=== PATIENT | male | born 1980 | race African-American/Black ===

== ENCOUNTER 2020-07-05 02:20 | Emergency (ER) | payer OTHER, SELFPAY ==
[2020-07-05 02:36] VITALS: BP 131/88; PULSE 86; RESP 18; TEMP 36.6; O2SAT 97; BMI 68.1
--- NOTE | 2020-07-05 02:55 | ED.GENADULT ---
HPI - General Adult General Chief complaint: Altered Mental Status Stated complaint: AMS Time Seen by Provider: 07/05/20 02:50 Source: patient Mode of arrival: EMS Limitations: no limitations History of Present Illness HPI narrative: patient is brought to the emergency room via EMS. Patient was found sleeping in his car, no Narcan given, patient was asked by PD to come to the emergency room. Patient agreed. Patient is here somnolent, states he takes Seroquel at bedtime, patient sleeps in his car because he is homeless. Patient denies using drugs. patient denies any recent illnesses. complaint: Somnolence Onset (ago): hour(s) Severity: moderate Related Data Allergies Allergy/AdvReac Type Severity Reaction Status Date / Time No Known Allergies Allergy Unverified 06/07/20 19:34 [No Known Allergies*] Review of Systems Review of Systems: Constitutional : No Weight loss, No Fever, No Chills, No Night Sweats, No Fatigue, No Malaise ENT/Mouth : No Hearing loss, No Ear Pain, No Nasal Congestion, No Sinus Pain, No Hoarseness, No sore throat, No Rhinorrhea, No Swallowing Difficulty Eyes: No Eye Pain, No Swelling, No Redness, No Foreign Body, No Discharge, No Vision Changes Cardiovascular : No Chest Pain, No SOB, No Dyspnea on Exertion, No Orthopnea, No Edema, No Palpitations Respiratory : No Cough, No Sputum, No Wheezing, No Smoke Exposure, No Dyspnea Gastrointestinal : No Nausea, No Vomiting, No Diarrhea, No Constipation, No abdominal Pain, No Hematochezia, No Melena Genitourinary : no irregular bleeding, No Dysuria, No Urinary Frequency, No Hematuria, No Urinary Incontinence, No Urgency, No Flank Pain, No Urinary Flow Changes, No Hesitancy Musculoskeletal : No joint pain, No Myalgias, No Joint Swelling Skin : No Skin Lesions, No rash Neuro : No Weakness, No Numbness, No Paresthesias, No Loss of Consciousness, No Dizziness, No Headache Psych : No Anxiety/Panic, No Depression, No SI/HI/AH/VH, No Social Issues, Heme/Lymph: No Bruising, No Bleeding,No Lymphadenopathy Endocrine : No Polyuria, No Polydipsia, No Temperature Intolerance PMFSH Past Medical History Medical History Anxiety Depression Schizophrenia Social History Social History Alcohol intake: unknown Smoking Status: Current every day smoker Use of substances other than those prescribed or required for medical reasons: Unknown Advance Directives: No Advance Directives Information Provided: No Physical Exam Vital Signs: Vital Signs: Vital Signs Temp Pulse Resp BP Pulse Ox 07/05/20 04:30 18 L 80 H 130/86 98 07/05/20 02:36 97.9 F 86 18 131/88 97 Body Mass Index 68.1 Appearance: Alert. Oriented X3. No acute distress. Eyes: Pupils equal, round and reactive to light. ENT: Pharynx normal. Neck: Normal inspection. Neck supple. No lymph nodes noted. No crepitus CVS: Normal heart rate and rhythm. Pulses normal. Normal S1 and S2 Respiratory: No respiratory distress. Breath sounds normal. No Wheezing. No rales Abdomen: Soft and nontender. No rigidity. No distention. good BS x4 Skin: Skin warm and dry. Normal skin color. Normal skin turgor. Extremities: No lower extremity edema. No lower extremity edema. No Lacerations. No Rash Neuro: Oriented X 3, somnolent, easily arousable No motor deficit. No sensory deficit. Moving all extermities. No slurred speech. Course Course Course Narrative: patient is awake, steady gait, ready for discharge Medical Decision Making MDM Narrative Medical decision making narrative: patient did not need Narcan, patient states he only used Seroquel. Patient is now awake, alert, steady gait, patient being discharged. Discharge Plan Discharge Clinical Impression: Somnolence Patient Disposition: Home, Self-Care Additional Instructions: Please follow-up with your primary care physician tomorrow. If you have any worsening or new symptoms, please return to the emergency room or call 911 Interventions: ED Discharge Assessment Last Done: 07/05/20 05:39 Discharge Date/Time: 07/05/20 05:39
[2020-07-05 04:30] VITALS: BP 130/86; PULSE 18; RESP 80; O2SAT 98
== END 2020-07-05 05:39 | disposition home or self-care (01) ==
PROVIDERS: Emergency Provider Emergency Medicine
DX: R40.0 Somnolence (principal); F17.200 Nicotine dependence, unspecified, uncomplicated; F20.9 Schizophrenia, unspecified
CPT/HCPCS: 99283; 99284

== ENCOUNTER 2023-10-05 16:47 | Emergency (ER) | payer OTHER, SELFPAY ==
--- NOTE | ~2023-10-05 | CT_ITS ---
EXAMINATION: CT ABDOMEN AND PELVIS WITH CONTRAST CLINICAL INFORMATION: Pain. COMPARISON: None available. TECHNIQUE: Multidetector volumetric images were obtained from the superior aspect of the liver through the pubic symphysis following administration 85 mL of Omnipaque 350 intravenous contrast. Sagittal and coronal reformatted images were obtained on the technologist's workstation. Oral contrast: No This CT examination was performed using dose optimization techniques as appropriate, variously including the following: *Automated exposure control *Adjustment of mA and/or kV according to patient size (this includes techniques or standardized protocols for targeted exams where dose is matched to indication/reason for exam; i.e. extremities or head) *Use of iterative reconstruction technique DLP: 615 mGy-cm FINDINGS: LUNG BASES: The visualized lung bases are unremarkable. LIVER, GALLBLADDER, AND BILIARY TREE: The liver is normal in size, shape, and attenuation. No focal hepatic lesion or biliary ductal dilatation is present. The gallbladder is unremarkable with no evidence of radiopaque gallstones, gallbladder wall thickening, or obvious pericholecystic inflammatory changes. PANCREAS: Unremarkable. SPLEEN: Unremarkable. ADRENAL GLANDS: Unremarkable. KIDNEYS AND URETERS: The kidneys are normal in size, shape, and attenuation. No hydronephrosis, hydroureter, or calculi seen. No perinephric stranding. BLADDER: Unremarkable. GASTROINTESTINAL TRACT: The small and large bowel are unremarkable. The appendix is prominent in size measuring up to 7 to 8 mm. There is no periappendiceal infiltration. ABDOMINAL WALL: No significant hernia is appreciated. LYMPH NODES: Normal. VASCULAR: Unremarkable. PELVIC VISCERA: Unremarkable. OSSEOUS STRUCTURES: Unremarkable. CT/CT abdomen pelvis w IV con IMPRESSION: Prominent appendix measuring 7 to 8 mm. There is no periappendiceal infiltration or fluid. Overall low suspicion for acute appendicitis. Correlation and follow-up is needed. No other significant abnormality identified. Fleischner guidelines were followed.
--- NOTE | 2023-10-05 17:46 | ED.GENADULT ---
HPI - General Adult General Chief complaint: Abdominal Pain Stated complaint: diarrhea,abd and back pain Time Seen by Provider: 10/05/23 23:19 Source: patient, RN notes reviewed and old records reviewed Mode of arrival: ambulatory Limitations: no limitations History of Present Illness HPI narrative: 42-year-old male past medical history significant for alcohol abuse presents for evaluation of abdominal pain, diarrhea. 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 Since then he has had abdominal pain, vomiting and diarrhea He denies any history abdominal surgeries He denies any history of pancreatitis He reports that he has not had a drink in the last 2 weeks but continues to have pain, nausea and diarrhea Related Data Previous Rx's Medication Instructions Recorded ondansetron 4 mg disintegrating 4 mg PO Q8H PRN nausea and 10/06/23 tablet vomiting #20 tabs Allergies Allergy/AdvReac Type Severity Reaction Status Date / Time No Known Allergies Allergy Verified 10/05/23 17:47 [No Known Allergies*] Review of Systems Constitutional: Constitutional: Denies chills and Denies fever(s) Eyes: Eyes: Denies blurry vision Cardiovascular: Cardiovascular: Denies chest pain and Denies dyspnea Respiratory: Respiratory: Denies cough and Denies dyspnea Gastrointestinal: Gastrointestinal: Reports abdominal pain, Reports nausea and Reports vomiting Musculoskeletal: Musculoskeletal: Reports back pain Integumentary/Breasts: Skin/Breast: Denies rash Psychiatric: Psychiatric: Denies depression PMFSH Past Medical History Onset Date is defined in the Problem List Problems that require an onset date and time if occurred within 24 hrs of arrival to the ED Aortic Dissection and Rupture; Neurologic impairment; Cardiopulmonary Arrest; Endotracheal Intubation; Insertion or Replacement of Mechanical Circulatory Assist Device Medical History Anxiety Depression Schizophrenia Social History Social History Alcohol intake: unknown Advance Directives: No Advance Directives Information Provided: Yes Physical Exam ED Vital Signs: Vital Signs - 24 hr 10/05/23 17:47 10/05/23 23:13 10/06/23 02:27 Temperature 97.2 F 98.3 F 98.3 F Pulse Rate 104 H 93 78 Respiratory Rate 18 17 18 Blood Pressure 139/88 140/85 H 131/85 Pulse Oximetry 99 96 97 Oxygen Delivery Method Room Air Room Air Room Air BMI result Body Mass Index 29.8 Const General: healthy appearing, comfortable, no acute distress, alert and awake Nutritional Appearance: well nourished Orientation/consciousness: patient oriented x3 HENMT Head: Yes normocephalic and Yes atraumatic Eyes Eyelids: Yes eyelids normal Conjunctivae: conjunctivae normal Sclerae: sclerae normal Corneas: corneas normal Pupils: Equal, round and reactive pupils present EOM: EOMs intact bilaterally Neck Neck: Yes full ROM Resp Effort & Inspection: normal respiratory effort, able to speak in complete sentences and not labored GI Inspection: No distended Palpation (GI): Soft to palpation, not firm, Tenderness to palpation present (GI) in the epigastrum, in the LUQ and in the RUQ, no guarding and not rigid Skin General skin exam: elasticity normal Neuro General: patient oriented x3 Cranial nerves: Yes Equal, round and reactive pupils present and Yes Bilaterally intact EOM present Cognition (Neuro): normal cognition Extrem Other: Moving all extremities well without any obvious deformities Course Course Course Narrative: RME:?42 yo male hx schizophrenia, depression, anxiety, here w/ n/v/d, bilateral flank pain, and burning sensation to epigastric region x2 weeks. He is hesitant to eat anything. reports swollen LN to groin and b/l axilla. denies melana, hematochezia. no sick contacts. no hx of STD, syphilis. plan for labs, ua, serology Full HPI, ROS and PE to be performed by the primary ED provider. Reevaluation(s) Reevaluation #1: Patient's CT scan resulted showing no evidence of acute pancreatitis. He does have a borderline thickened appendix. The CT imaging shows low suspicion for acute appendicitis. The patient has no right lower quadrant tenderness on exam. Clinically there was a low suspicion for acute appendicitis. I discussed return precautions with the patient including right lower quadrant abdominal pain. Inability to tolerate p.o.. He is stable for discharge. He did bring up a concern for STIs. He would like to be tested but will not be empirically treated at this time. Time: 02:41 Medications Administered Discontinued Medications Generic Name Dose Route Start Last Admin Trade Name Krystle PRN Reason Stop Dose Admin Sodium Chloride 1,000 mls @ 999 mls/hr 10/05/23 23:45 10/06/23 00:48 Ns IV 10/06/23 00:45 999 mls/hr .Q1H1M JACY Administration Iohexol 85 ml 10/06/23 01:27 10/06/23 01:27 Iohexol 350 Mg/Ml 100 Ml Infus..Btl IV 10/06/23 01:28 85 ml ONCE ONE Administration Ondansetron HCl 4 mg 10/05/23 23:47 10/06/23 00:48 Ondansetron Hcl 4 Mg/2 Ml Vial IVPUSH 10/05/23 23:48 4 mg ONCE ONE Administration Medical Decision Making Medical Decision Making [facility] Narrative: 42-year-old male presents for evaluation abdominal pain, diarrhea. He reports he has an extensive history of alcohol abuse but has not had a drink in 2 weeks. 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 Will add on a all tells panel and ethanol level. Patient has a mild transaminitis with a lipase approximately twice upper normal. Will need a CT scan of the abdomen pelvis as he has no history of pancreatitis. Given the reported alcohol abuse I have a lower suspicion for gallbladder disease. The patient's total bilirubin was also 0.3 which is less likely be related to biliary obstruction. Patient medicated with fluids, Zofran, he declines analgesia at this time Differential Diagnosis Differential Diagnoses: The differential diagnosis associated with the presentation includes Acute pancreatitis Elevated lipase Transaminitis Alcoholic cirrhosis Biliary disease Viral syndrome Alcohol abuse Lab Data [facility] Lab Attestation statement: I reviewed the patient's lab results. No leukocytosis or anemia. Patient's platelet count is 111 just below normal. No significant electrolyte abnormalities. He has a very mild transaminitis, a normal total bilirubin of 0.3 and a lipase elevated to 157 10/05/23 19:53 10/05/23 19:53 Labs: Lab Results 10/05/23 10/06/23 10/06/23 Range/Units 19:53 00:47 01:40 WBC 5.3 (4.8-10.8) X10*3/uL RBC 5.42 (4.60-5.80) X10*6/uL Hgb 15.7 (14.0-18.0) g/dl Hct 46.9 (42.0-52.0) % MCV 86.5 (80.0-98.0) fL MCH 29.0 (27.0-33.0) pg MCHC 33.5 (31.0-36.0) g/dl RDW 14.6 (11.0-16.0) % Plt Count 111 L (160-400) X10*3/uL MPV 12.5 H (9.4-12.4) fL Immature Gran % (Auto) 0.2 (0.0-0.4) % Neut % (Auto) 41.0 L (45-73) % Lymph % (Auto) 45.5 H (20-40) % [place] % (Auto) 9.8 (2-11) % Eos % (Auto) 2.7 (0-4) % Baso % (Auto) 0.8 (0-2) % Lymph # (Auto) 2.4 (1.2-4.9) X10*3/uL [place] # (Auto) 0.5 (0.1-1.2) X10*3/uL Eos # (Auto) 0.1 (0.0-0.4) X10*3/uL Baso # (Auto) 0.0 (0.0-0.2) X10*3/uL Abs Immat Gran (auto) 0.01 (0.00-0.03) X10*3/uL Absolute Neuts (auto) 2.2 (2.0-8.3) x10*3/uL Absolute Nucleated RBC 0.000 (0.0-0.012) X10*3/uL Nucleated RBC % (auto) 0.0 (0.0-0.2) /100WBC Sodium 140 (135-145) mmol/L Potassium 4.7 (3.3-5.1) mmol/L Chloride 102 (96-108) mmol/L Carbon Dioxide 29 (22-29) mmol/L Anion Gap 14 (12-20) BUN 12 (9-16) mg/dL Creatinine 1.25 (0.5-1.4) mg/dL Estim Creat Clear Calc 94.1 Estimated GFR > 60 Random Glucose 97 (60-115) mg/dL Calcium 11.2 H (8.4-10.2) mg/dL Magnesium 1.8 (1.6-2.6) mg/dL Total Bilirubin 0.3 (0.0-1.0) mg/dL AST 44 H (5-37) U/L ALT 94 H (0-40) U/L Alkaline Phosphatase 54 (39-117) U/L Total Protein 8.7 H (6.5-8.0) g/dL Albumin 5.1 H (3.5-5.0) g/dL Lipase 159 H (8-78) U/L Urine Color Yellow Urine Appearance Clear Urine pH 5.5 (5.0-9.0) Ur Specific [place] >= 1.030 H (1.005-1.025) Urine Protein Negative (Neg-Trace) mg/dL Urine Glucose (UA) Negative (Negative) mg/dL Urine Ketones Negative (Negative) mg/dL Urine Blood Negative (Negative) Urine Nitrite Negative (Negative) Ur Leukocyte Esterase Negative (Negative) Ethyl Alcohol < 10 mg/dL COVID-19 (ZAHIRA) Negative (Negative) COVID-19 Clin Com See Note Influenza Type A (ASTER) Negative (Negative) Influenza Type B (ASTER) Negative (Negative) Influenza A & B Note See Note Discharge Plan Discharge Clinical Impression: Pancreatitis Patient Disposition: Home, Self-Care Instructions: Pancreatitis (ED) Additional Instructions: Your workup in the emergency department today was significant for mild elevation of your liver enzymes and lipase that was approximately double normal. This is suggestive of mild pancreatitis likely related to alcohol abuse. You should drink a liquid diet for the next few days until your pain and vomiting resolved A diet of bananas, rice, applesauce, toast will help slow down diarrhea there is a good place to start after 2-3 days of liquid diet You may use Zofran as needed for nausea or vomiting Follow-up with your primary doctor Return for new or worsening symptoms especially if you develop severe right lower quadrant abdominal pain or unable to tolerate any liquids or food without vomiting. Prescriptions: New ondansetron 4 mg tablet,disintegrating 4 mg PO Q8H PRN (Reason: nausea and vomiting) Qty: 20 0RF
[2023-10-05 17:47] VITALS: BP 139/88; PULSE 104; RESP 18; TEMP 36.2; O2SAT 99; BMI 29.8
[2023-10-05 19:59] LABS: MANUAL DIFF FLAG NO
[2023-10-05 20:04] LABS: Basophils Percent Auto 0.8 % (0-2); Eosinophils Absolute Auto 0.1 X10*3/uL (0.0-0.4); Eosinophils Percent Auto 2.7 % (0-4); Hematocrit 46.9 % (42.0-52.0); Hemoglobin 15.7 g/dl (14.0-18.0); Imm Gran Abs Auto 0.01 X10*3/uL (0.00-0.03); Imm Gran Pct Auto 0.2 % (0.0-0.4); Lymphocytes Absolute Auto 2.4 X10*3/uL (1.2-4.9); Lymphocytes Percent Auto 45.5 % (20-40); Mean Corpuscular HGB Conc 33.5 g/dl (31.0-36.0); Mean Corpuscular Volume 86.5 fL (80.0-98.0); Mean Platelet Volume 12.5 fL (9.4-12.4); Monocytes Absolute Auto 0.5 X10*3/uL (0.1-1.2); Monocytes Percent Auto 9.8 % (2-11); Neutrophils Absolute Auto 2.2 x10*3/uL (2.0-8.3); Platelet Count 111 X10*3/uL (160-400); Red Blood Count 5.42 X10*6/uL (4.60-5.80); Red Cell Distribution Width 14.6 % (11.0-16.0); White Blood Count 5.3 X10*3/uL (4.8-10.8)
[2023-10-05 20:19] LABS: Alanine Aminotransferase 94 U/L (0-40); Albumin Level 5.1 g/dL (3.5-5.0); Alkaline Phosphatase 54 U/L (39-117); Anion Gap 14 (12-20); Aspartate Amino Transferase 44 U/L (5-37); Bilirubin Total 0.3 mg/dL (0.0-1.0); Blood Urea Nitrogen 12 mg/dL (9-16); Calcium 11.2 mg/dL (8.4-10.2); Carbon Dioxide 29 mmol/L (22-29); Chloride 102 mmol/L (96-108); Creatinine Clr Calc Pharmacy 94.1; Estimated Glomerular Filt Rate > 60; Glucose Random 97 mg/dL (60-115); Lipase 159 U/L (8-78); Magnesium 1.8 mg/dL (1.6-2.6); Potassium 4.7 mmol/L (3.3-5.1); Sodium 140 mmol/L (135-145); Total Protein 8.7 g/dL (6.5-8.0)
[2023-10-05 20:20] LABS: COVID-19 Test Negative (Negative); IDNOW Serial# 08D9AD1C; IDNOW Serial# 152EDE1D; Influenza A Negative (Negative); Influenza B2 Negative (Negative)
[2023-10-05 23:13] VITALS: BP 140/85; PULSE 93; RESP 17; TEMP 36.8; O2SAT 96
[2023-10-06] MEDS: ondansetron HCL 4 MG/2 ML VIAL IVPUSH (00:48)
[2023-10-06] MEDS: 0.9 % Sodium Chloride 1,000 ML 999 ML IV (00:48)
[2023-10-06 01:13] LABS: Ethanol < 10 mg/dL
[2023-10-06] MEDS: iohexoL 350 MG/ML 100 ML INFUS..BTL 85 ML IV (01:27)
[2023-10-06 01:46] LABS: Appearance Urine Clear; Color Urine Yellow; Glucose Urine UA Negative (Negative); Leukocyte Esterase Urine Negative (Negative); Nitrite Urine Negative (Negative); PH 5.5 (5.0-9.0); Specific Gravity - Urine >= 1.030 (1.005-1.025); Urine Blood Negative (Negative); Urine Ketones Negative (Negative); Urine Protein Negative (Neg-Trace)
[2023-10-06 02:27] VITALS: BP 131/85; PULSE 78; RESP 18; TEMP 36.8; O2SAT 97
[2023-10-06 04:59] LABS: Ethylene Glycol NONE DETECTED (NONE DETECTED)
[2023-10-06 04:59] LABS: Acetone NONE DETECTED (NONE DETECTED); Analysis performed on: WHOLE BLOOD; Ethyl Alcohol g/dL (%) NONE DETECTED g/dL(%) (NONE DETECTED); Ethyl Alcohol mg/dL NONE DETECTED (NONE DETECTED); Isopropanol NONE DETECTED (NONE DETECTED)
[2023-10-06 07:23] LABS: Methyl Alcohol NONE DETECTED
[2023-10-06 11:23] LABS: CT PCR NOT DETECTED (Not Detect.); NG PCR NOT DETECTED (Not Detect.)
== END 2023-10-06 03:05 | disposition home or self-care (01) ==
PROVIDERS: Physician Assistant; Physician Assistant Medical; Emergency Provider Emergency Medicine
DX: K85.90 Acute pancreatitis without necrosis or infection, unspecified (principal); R10.9 Unspecified abdominal pain; M54.50 Low back pain, unspecified; R11.2 Nausea with vomiting, unspecified; Z11.52 Encounter for screening for COVID-19; Z20.828 Contact with and (suspected) exposure to other viral communicable diseases; Z79.899 Other long term (current) drug therapy
CPT/HCPCS: 0353U; 36415; 74177; 80053; 80307; 80320; 81003; 82693; 83690; 83735; 85025; 87502; 87635; 96374; 99284; J2405; Q9967

== ENCOUNTER 2024-04-04 12:09 | Emergency (ER) | payer OTHER, SELFPAY ==
--- NOTE | ~2024-04-04 | XR_ITS ---
EXAMINATION: XR ANKLE, LEFT XR FOOT, LEFT CLINICAL INFORMATION: Pain following injury. COMPARISON: None. TECHNIQUE: AP, lateral, and oblique views of the left ankle and foot were obtained. FINDINGS: At the distal aspect the medial malleolus, there is a minimally displaced cortical fracture fragment measuring up to 0.6 cm in ML dimension and seen on the lateral oblique radiographs, consistent with an avulsion fracture. No additional fracture. No dislocation. The ankle mortise is maintained. No joint space narrowing or marginal osteophytes. No osseous erosion. Tiny dorsal calcaneal enthesophyte. XR/XR foot LT min 3V IMPRESSION: 1. Minimally displaced avulsion fracture at the distal aspect of the medial malleolus. 2. Tiny dorsal calcaneal spur.
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
--- NOTE | ~2024-04-04 | XR_ITS ---
EXAMINATION: XR ANKLE, LEFT XR FOOT, LEFT CLINICAL INFORMATION: Pain following injury. COMPARISON: None. TECHNIQUE: AP, lateral, and oblique views of the left ankle and foot were obtained. FINDINGS: At the distal aspect the medial malleolus, there is a minimally displaced cortical fracture fragment measuring up to 0.6 cm in ML dimension and seen on the lateral oblique radiographs, consistent with an avulsion fracture. No additional fracture. No dislocation. The ankle mortise is maintained. No joint space narrowing or marginal osteophytes. No osseous erosion. Tiny dorsal calcaneal enthesophyte. XR/XR ankle LT min 3V IMPRESSION: 1. Minimally displaced avulsion fracture at the distal aspect of the medial malleolus. 2. Tiny dorsal calcaneal spur.
[2024-04-04 12:22] VITALS: BP 158/109; PULSE 110; RESP 18; TEMP 36.6; O2SAT 100; BMI 30.5
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
[2024-04-04 16:28] VITALS: BP 147/101; PULSE 103; RESP 16; TEMP 37; O2SAT 98
[2024-04-04 16:58] VITALS: BP 147/101; PULSE 103; RESP 16; TEMP 37; O2SAT 98
== END 2024-04-04 17:31 | disposition home or self-care (01) ==
PROVIDERS: Emergency Provider Student in an Organized Health Care Education/Training Program; PCP Internal Medicine
DX: S82.52XA Displaced fracture of medial malleolus of left tibia, initial encounter for closed fracture (principal); R51.9 Headache, unspecified; M54.2 Cervicalgia; H93.13 Tinnitus, bilateral; M25.572 Pain in left ankle and joints of left foot; X58.XXXA Exposure to other specified factors, initial encounter; V43.12XA Car passenger injured in collision with other type car in nontraffic accident, initial encounter; Y93.89 Activity, other specified; Y92.481 Parking lot as the place of occurrence of the external cause; Y99.8 Other external cause status
CPT/HCPCS: 70450; 72125; 73610; 73630; 99284

== ENCOUNTER 2024-04-22 11:27 | Outpatient (AMB) | payer OTHER, SELFPAY ==
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
== END 2024-04-22 12:00 | disposition home or self-care (01) ==
PROVIDERS: PCP Internal Medicine; Visit Provider Physician Assistant
DX: S82.892A Other fracture of left lower leg, initial encounter for closed fracture (principal); Z04.3 Encounter for examination and observation following other accident
CPT/HCPCS: 99203

== ENCOUNTER → 2024-04-22 11:27 | Outpatient (BNVA) | payer OTHER, SELFPAY | PROVIDERS: PCP Internal Medicine; Visit Provider Physician Assistant ==

== ENCOUNTER 2024-06-15 11:00 | Outpatient (RCR) | payer OTHER, SELFPAY ==
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
== END 2024-06-22 16:31 | disposition home or self-care (01) ==
LOC: HO.PTCHIC 11:00
PROVIDERS: PCP Internal Medicine; Visit Provider Physician Assistant
DX: S82.892D Other fracture of left lower leg, subsequent encounter for closed fracture with routine healing (principal)
CPT/HCPCS: 97110; 97112; 97161

== ENCOUNTER 2024-07-21 15:23 | Outpatient (AMB) | payer OTHER, SELFPAY ==
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
== END 2024-07-21 16:00 | disposition home or self-care (01) ==
LOC: HO.HOS 15:24
PROVIDERS: PCP Internal Medicine; Visit Provider Physician Assistant
DX: S82.892A Other fracture of left lower leg, initial encounter for closed fracture (principal)
CPT/HCPCS: 99213; G2211

== ENCOUNTER → 2024-07-21 15:23 | Outpatient (BNVA) | payer OTHER, SELFPAY | PROVIDERS: PCP Internal Medicine; Visit Provider Physician Assistant ==

== ENCOUNTER 2025-03-04 19:46 | Inpatient (IN) | payer OTHER, SELFPAY ==
--- NOTE | ~2025-03-04 | CT_ITS ---
CLINICAL HISTORY: finger swollen, cat bite CT Left Hand W Contrast COMPARISON: None FINDINGS: Subcutaneous fat stranding most pronounced in the dorsolateral hand and 2nd digit subcutaneous fat. Small soft tissue emphysema dorsal to the distal 2nd metacarpal (series 3, image 218 and series 7, image 70). No visible foreign body. No soft tissue abscess. No acute fracture or dislocation. No cortical disruption or periosteal reaction. IMPRESSION: Findings consistent with cellulitis in the dorsolateral hand and 2nd digit. Soft tissue emphysema in this area could be due to penetrating trauma or gas-forming infection/necrotizing fasciitis, which is a clinical diagnosis. This document has been electronically signed by: Rakan Stafford MD on 03/05/2025 01:32:33
[2025-03-04 20:01] VITALS: BP 131/77; PULSE 87; RESP 16; TEMP 36.6; O2SAT 99; BMI 30.5
--- NOTE | 2025-03-04 20:01 | ED.GENADULT ---
HPI - General Adult General Chief complaint: Animal Bite Stated complaint: cat scratched 2 days ago hand is swollen Time Seen by Provider: 03/04/25 21:39 Source: patient Mode of arrival: ambulatory Limitations: no limitations History of Present Illness ED Provider: HPI narrative: Patient was healthy was throwing the trash in the trash bin and found the stray cat in the trash bin tried to take her out with bare hand and Cat bit him on his left hand and right hand. Patient comes here with multiple bite hilliard on the left index finger wrist of the left hand in the right forearm patient noticed increased swelling of the left index finger painful to dorsiflex because of pain swelling spreading to the dorsum of the hand Related Data Home Medications ?Medication ?Instructions ?Recorded ?Confirmed bupropion HCl 150 mg 24 hr tablet, 150 mg PO DAILY 04/22/24 extended release dextroamphetamine-amphetamine 30 1 tab PO DAILY 04/22/24 mg tablet propranolol 20 mg tablet 20 mg PO BID 04/22/24 sertraline 100 mg tablet 100 mg PO DAILY 04/22/24 tadalafil 10 mg tablet 10 mg PO 04/22/24 Previous Rx's ?Medication ?Instructions ?Recorded ondansetron 4 mg disintegrating 4 mg PO Q8H PRN nausea and 10/06/23 tablet vomiting #20 tabs amoxicillin 875 mg-potassium 1 tab PO BID #20 tabs 03/04/25 clavulanate 125 mg tablet ibuprofen 600 mg tablet 600 mg PO Q6H PRN fever or pain 03/04/25 #30 tabs Allergies Allergy/AdvReac Type Severity Reaction Status Date / Time No Known Allergies Allergy Verified 03/04/25 20:06 [No Known Allergies*] Review of Systems Review of Systems: Yes all other systems are reviewed and are negative [facility] Past Medical History Medical History Schizophrenia Depression Anxiety Social History Social History Alcohol intake: current Alcohol intake frequency: a few times a week Patient Tobacco Use Status: Former Tobacco user Smoked in Last 30 Days: No Substance Use Type: Marijuana Advance Directives: No Advance Directives Information Provided: No Current occupational status: unemployed Physical Exam ED Vital Signs: Vital Signs - 24 hr 03/04/25 20:01 03/04/25 22:15 Temperature 97.8 F 97.6 F Pulse Rate 87 83 Respiratory Rate 16 18 Blood Pressure 131/77 144/91 H Pulse Oximetry 99 100 Oxygen Delivery Method Room Air Room Air BMI result Body Mass Index 30.5 Appearance: Alert. Oriented X3. No acute distress. Eyes: no pallor or icterus ENT: Pharynx normal Oral Mucosa moist tympanic membrane intact no erythema, Neck: Normal inspection. Neck supple. CVS: Normal heart rate and rhythm. Pulses normal. Respiratory: No respiratory distress. Equal air entry bilateral, no wheezing/rales/rhonchi Abd: soft, not tender Skin: Skin warm and dry. Normal skin color. Normal skin turgor. Extremities: No lower extremity edema, no calf tenderness swollen left index finger painful dorsiflexion Neuro: Oriented X 3. Course Course Course Narrative: This is a rapid medical exam performed by Mary Cortes [employer] PROFESSOR: Additional HPI, ROS, PE not included below will be deferred to primary provider. Patient is a 44-year-old right hand dominant male presenting with complaint of cat scratches and bite to bilateral hands/arms which occurred 2 days ago. States the cat was in his trash can and he didn't realize it, occurred in [place]. Believes cat is a stray. Unsure last Tdap. Swelling and decreased ROM to left 2nd finger. Plan: labs, Tdap Medications Administered Discontinued Medications Generic Name Dose Route Start Last Admin Trade Name Freq PRN Reason Stop Dose Admin Diphtheria/Tetanus/Acell Pertussis 0.5 ml 03/04/25 21:59 03/04/25 22:15 Diphth,Pertus(Acell),Tet Adult 0.5 Ml Syringe IM 03/04/25 22:00 0.5 ml .ONCE ONE Administration Piperacillin Sod/Tazobactam 50 mls @ 100 mls/hr 03/04/25 21:59 03/04/25 22:36 Sod 3.375 gm/ Sodium Chloride IV 03/04/25 22:28 Infused ONCE ONE Infusion Lidocaine HCl 5 ml 03/04/25 22:50 03/04/25 23:22 Lidocaine Hcl 1 % Mpf 5 Ml Vial INFILTRATI 03/04/25 22:51 5 ml ONCE ONE Administration Rabies Immune Globulin 2,000 unit 03/04/25 22:50 03/04/25 23:19 Rabies Immune Globulin/Pf 900 Unit/3 Ml Vial IM 03/04/25 22:51 2,000 unit ONCE ONE Administration Rabies Vaccine 1 ml 03/04/25 22:50 03/04/25 23:20 Rabies Vaccine (Pcec)/Pf 1 Ml Vial IM 03/04/25 22:51 1 ml .ONCE ONE Administration Procedures Abscess I/D Site: hand (Index finger) Side (if applicable): left Local Anesthetic: lidocaine 1% Amount of anesthesia used (mL): 3 Technique: incised with blade Amount of fluid expressed (mL): 1 Sent for culture/gram staining?: No Irrigation: No Packing used?: none Medical Decision Making Medical Decision Making MDM Narrative: Patient comes here with left hand swelling after streak at bite swelling involving the index finger on the dorsum with painful to extend the finger neurovascular intact no palmar pain no signs of tenosynovitis but swelling is spreading to the dorsum of the hand rabies immunoglobulin was given at the site of the cat bite and rabies vaccine was given will started on Unasyn will admit for ortho consultation Differential Diagnosis Differential Diagnoses: The differential diagnosis associated with the presentation includes Admission/Observation Consideration of admission/observation: Escalation of care including admission/observation considered Consult Healthcare Provider Management of the patient was discussed with: Hospitalist Lab Data [facility] Lab Attestation statement: I reviewed the patient's lab results. 03/04/25 20:21 03/04/25 20:21 Labs: Lab Results 03/04/25 Range/Units 20:21 WBC 6.6 (4.8-10.8) X10*3/uL RBC 4.50 L (4.60-5.80) X10*6/uL Hgb 13.8 L (14.0-18.0) g/dl Hct 39.7 L (42.0-52.0) % MCV 88.2 (80.0-98.0) fL MCH 30.7 (27.0-33.0) pg MCHC 34.8 (31.0-36.0) g/dl RDW 14.2 (11.0-16.0) % Plt Count 147 L D (160-400) X10*3/uL MPV 12.1 (9.4-12.4) fL Immature Gran % (Auto) 0.2 (0.0-0.4) % Neut % (Auto) 44.1 L (45-73) % Lymph % (Auto) 39.1 (20-40) % [place] % (Auto) 10.6 (2-11) % Eos % (Auto) 5.5 H (0-4) % Baso % (Auto) 0.5 (0-2) % Lymph # (Auto) 2.6 (1.2-4.9) X10*3/uL [place] # (Auto) 0.7 (0.1-1.2) X10*3/uL Eos # (Auto) 0.4 (0.0-0.4) X10*3/uL Baso # (Auto) 0.0 (0.0-0.2) X10*3/uL Abs Immat Gran (auto) 0.01 (0.00-0.03) X10*3/uL Absolute Neuts (auto) 2.9 (2.0-8.3) x10*3/uL Absolute Nucleated RBC 0.000 (0.0-0.012) X10*3/uL Nucleated RBC % (auto) 0.0 (0.0-0.2) /100WBC ESR 3 (0-15) MM/HR Sodium 142 (135-145) mmol/L Potassium 4.1 (3.3-5.1) mmol/L Chloride 112 H (96-108) mmol/L Carbon Dioxide 22 (22-29) mmol/L Anion Gap 12 (12-20) BUN 13 (9-16) mg/dL Creatinine 0.85 (0.5-1.4) mg/dL Estim Creat Clear Calc 141.0 Estimated GFR > 60 Random Glucose 105 (60-115) mg/dL Calcium 8.7 D (8.4-10.2) mg/dL Total Bilirubin 0.1 (0.0-1.0) mg/dL AST 23 (5-37) U/L ALT 33 (0-40) U/L Alkaline Phosphatase 57 (39-117) U/L C-Reactive Protein 0.80 H (< or = 0.50) mg/dL Total Protein 7.1 (6.5-8.0) g/dL Albumin 4.3 (3.5-5.0) g/dL Discharge Plan Discharge Clinical Impression: Cat bite Patient Disposition: Admitted As Inpatient Print Language: Danish
[2025-03-04 20:29] LABS: MANUAL DIFF FLAG NO
[2025-03-04 20:31] LABS: Basophils Percent Auto 0.5 % (0-2); Eosinophils Absolute Auto 0.4 X10*3/uL (0.0-0.4); Eosinophils Percent Auto 5.5 % (0-4); Hematocrit 39.7 % (42.0-52.0); Hemoglobin 13.8 g/dl (14.0-18.0); Imm Gran Abs Auto 0.01 X10*3/uL (0.00-0.03); Imm Gran Pct Auto 0.2 % (0.0-0.4); Lymphocytes Absolute Auto 2.6 X10*3/uL (1.2-4.9); Lymphocytes Percent Auto 39.1 % (20-40); Mean Corpuscular HGB Conc 34.8 g/dl (31.0-36.0); Mean Corpuscular Hemoglobin 30.7 pg (27.0-33.0); Mean Corpuscular Volume 88.2 fL (80.0-98.0); Mean Platelet Volume 12.1 fL (9.4-12.4); Monocytes Absolute Auto 0.7 X10*3/uL (0.1-1.2); Monocytes Percent Auto 10.6 % (2-11); Neutrophils Absolute Auto 2.9 x10*3/uL (2.0-8.3); Neutrophils Percent Auto 44.1 % (45-73); Platelet Count 147 X10*3/uL (160-400); Red Cell Distribution Width 14.2 % (11.0-16.0); White Blood Count 6.6 X10*3/uL (4.8-10.8)
[2025-03-04 20:46] LABS: Alanine Aminotransferase 33 U/L (0-40); Albumin Level 4.3 g/dL (3.5-5.0); Alkaline Phosphatase 57 U/L (39-117); Anion Gap 12 (12-20); Aspartate Amino Transferase 23 U/L (5-37); Bilirubin Total 0.1 mg/dL (0.0-1.0); Blood Urea Nitrogen 13 mg/dL (9-16); Calcium 8.7 mg/dL (8.4-10.2); Carbon Dioxide 22 mmol/L (22-29); Chloride 112 mmol/L (96-108); Estimated Glomerular Filt Rate > 60; Glucose Random 105 mg/dL (60-115); Potassium 4.1 mmol/L (3.3-5.1); Sodium 142 mmol/L (135-145); Total Protein 7.1 g/dL (6.5-8.0)
[2025-03-04 21:21] LABS: Erythrocyte Sedimentation Rate 3 MM/HR (0-15)
[2025-03-04 22:15] VITALS: BP 144/91; PULSE 83; RESP 18; TEMP 36.4; O2SAT 100
[2025-03-04] MEDS: Piperacillin Sodium/Tazobactam 3.375 GM in 0.9 % Sodium Chloride 50 ML IV (22:15)
[2025-03-04] MEDS: Diphth,Pertus(ACell),Tet Adult 0.5 ML SYRINGE IM (22:15)
--- NOTE | 2025-03-04 22:50 | ED.ANIMALBIT ---
HPI - Animal Bite General Chief Complaint: Animal Bite Stated Complaint: cat scratched 2 days ago hand is swollen Time Seen by Provider: 03/04/25 21:39 Related Data Home Medications ?Medication ?Instructions ?Recorded ?Confirmed bupropion HCl 150 mg 24 hr tablet, 150 mg PO DAILY 04/22/24 extended release dextroamphetamine-amphetamine 30 1 tab PO DAILY 04/22/24 mg tablet propranolol 20 mg tablet 20 mg PO BID 04/22/24 sertraline 100 mg tablet 100 mg PO DAILY 04/22/24 tadalafil 10 mg tablet 10 mg PO 04/22/24 Previous Rx's ?Medication ?Instructions ?Recorded ondansetron 4 mg disintegrating 4 mg PO Q8H PRN nausea and 10/06/23 tablet vomiting #20 tabs amoxicillin 875 mg-potassium 1 tab PO BID #20 tabs 03/04/25 clavulanate 125 mg tablet ibuprofen 600 mg tablet 600 mg PO Q6H PRN fever or pain 03/04/25 #30 tabs Allergies Allergy/AdvReac Type Severity Reaction Status Date / Time No Known Allergies Allergy Verified 03/04/25 20:06 [No Known Allergies*] [facility] Past Medical History Medical History Anxiety Depression Schizophrenia Social History Social History Alcohol intake: current Alcohol intake frequency: a few times a week Patient Tobacco Use Status: Former Tobacco user Smoked in Last 30 Days: No Substance Use Type: Marijuana Advance Directives: No Advance Directives Information Provided: No Current occupational status: unemployed Physical Exam ED Vital Signs: Vital Signs - 24 hr 03/04/25 20:01 03/04/25 22:15 Temperature 97.8 F 97.6 F Pulse Rate 87 83 Respiratory Rate 16 18 Blood Pressure 131/77 144/91 H Pulse Oximetry 99 100 Oxygen Delivery Method Room Air Room Air BMI result Body Mass Index 30.5 Medications Administered Discontinued Medications Generic Name Dose Route Start Last Admin Trade Name Freq PRN Reason Stop Dose Admin Diphtheria/Tetanus/Acell Pertussis 0.5 ml 03/04/25 21:59 03/04/25 22:15 Diphth,Pertus(Acell),Tet Adult 0.5 Ml Syringe IM 03/04/25 22:00 0.5 ml .ONCE ONE Administration Piperacillin Sod/Tazobactam 50 mls @ 100 mls/hr 03/04/25 21:59 03/04/25 22:36 Sod 3.375 gm/ Sodium Chloride IV 03/04/25 22:28 Infused ONCE ONE Infusion Medical Decision Making Lab Data 03/04/25 20:21 03/04/25 20:21 Labs: Lab Results 03/04/25 Range/Units 20:21 WBC 6.6 (4.8-10.8) X10*3/uL RBC 4.50 L (4.60-5.80) X10*6/uL Hgb 13.8 L (14.0-18.0) g/dl Hct 39.7 L (42.0-52.0) % MCV 88.2 (80.0-98.0) fL MCH 30.7 (27.0-33.0) pg MCHC 34.8 (31.0-36.0) g/dl RDW 14.2 (11.0-16.0) % Plt Count 147 L D (160-400) X10*3/uL MPV 12.1 (9.4-12.4) fL Immature Gran % (Auto) 0.2 (0.0-0.4) % Neut % (Auto) 44.1 L (45-73) % Lymph % (Auto) 39.1 (20-40) % [place] % (Auto) 10.6 (2-11) % Eos % (Auto) 5.5 H (0-4) % Baso % (Auto) 0.5 (0-2) % Lymph # (Auto) 2.6 (1.2-4.9) X10*3/uL [place] # (Auto) 0.7 (0.1-1.2) X10*3/uL Eos # (Auto) 0.4 (0.0-0.4) X10*3/uL Baso # (Auto) 0.0 (0.0-0.2) X10*3/uL Abs Immat Gran (auto) 0.01 (0.00-0.03) X10*3/uL Absolute Neuts (auto) 2.9 (2.0-8.3) x10*3/uL Absolute Nucleated RBC 0.000 (0.0-0.012) X10*3/uL Nucleated RBC % (auto) 0.0 (0.0-0.2) /100WBC ESR 3 (0-15) MM/HR Sodium 142 (135-145) mmol/L Potassium 4.1 (3.3-5.1) mmol/L Chloride 112 H (96-108) mmol/L Carbon Dioxide 22 (22-29) mmol/L Anion Gap 12 (12-20) BUN 13 (9-16) mg/dL Creatinine 0.85 (0.5-1.4) mg/dL Estim Creat Clear Calc 141.0 Estimated GFR > 60 Random Glucose 105 (60-115) mg/dL Calcium 8.7 D (8.4-10.2) mg/dL Total Bilirubin 0.1 (0.0-1.0) mg/dL AST 23 (5-37) U/L ALT 33 (0-40) U/L Alkaline Phosphatase 57 (39-117) U/L C-Reactive Protein 0.80 H (< or = 0.50) mg/dL Total Protein 7.1 (6.5-8.0) g/dL Albumin 4.3 (3.5-5.0) g/dL Discharge Plan Discharge Clinical Impression: Cat bite Patient Disposition: Admitted As Inpatient Print Language: Vincentian
[2025-03-04] MEDS: Rabies Immune Globulin/PF 900 UNIT/3 ML VIAL 2000 UNIT IM (23:19)
[2025-03-04] MEDS: Rabies Vaccine (PCEC)/PF 1 ML VIAL IM (23:20)
[2025-03-04] MEDS: Lidocaine HCl 1 % MPF 5 ML VIAL INFILTRATI (23:22)
--- NOTE | 2025-03-04 23:35 | PC.NURSE ---
pt medicated per NOV- this nurse observed MD Avalos cleansed lower left index finger with iodine, infiltrate left index finger with 5ml of lidocaine 5%, used a #10blade to make .25 in vertical incision. approx 45mls of bloody purulent drainage observed from site. dry clean dressing was placed, bleeding controlled. pt medicated per NOV for rabies prophylaxis. TdaP also updated. Pt awaiting eval by hospitalist team
[2025-03-05 00:34] VITALS: BP 104/80; PULSE 85; RESP 16; O2SAT 100
--- NOTE | 2025-03-05 00:35 | P.HPHOSP_ITS ---
History of Present Illness Date of Service: 03/05/25 Chief Complaint: cat bite This has a 44-year-old male with pertinent history of mood disorder who presents to the emergency department for evaluation of cat bite. Patient states this happened 2 days prior to presentation when he was trying to take a stray cat out of a trash can who bit the patient on his left hand. He has scratch hilliard on left and right upper extremity. Patient has multiple bite hilliard in his left index finger. He did not take any oral antibiotics for the last 2 days. He noticed that has left index finger was with progressive swelling, erythema and pain. Patient with difficulty with flexing the index finger due to pain. No fever, chills, chest pain, palpitations, shortness of breath, abdominal pain, changes in urinary or bowel habits. In the emergency department, I and D done by ER physician. Review of Systems 2 Constitutional: Constitutional: Reports no additional constitutional complaints Cardiovascular: Cardiovascular: Reports no additional cardiovascular complaints Respiratory: Respiratory: Reports no additional respiratory complaints Gastrointestinal: Gastrointestinal: Reports no additional gastrointestinal complaints Genitourinary: Genitourinary: Reports no additional male genitourinary complaints Musculoskeletal: Musculoskeletal: Reports arthralgias, Reports joint swelling and Reports limited range of motion PMFSH Medical History Schizophrenia Depression Anxiety Social History Alcohol intake: current Alcohol intake frequency: a few times a week Patient Tobacco Use Status: Former Tobacco user Smoked in Last 30 Days: No Substance Use Type: Marijuana Advance Directives: No Advance Directives Information Provided: No Current occupational status: unemployed Meds Allergies Allergy/AdvReac Type Severity Reaction Status Date / Time No Known Allergies Allergy Verified 03/04/25 20:06 [No Known Allergies*] Active Medications: Current Medications Lactated Ringer's (Lr) 1,000 mls @ 999 mls/hr IV .Q1H1M JACY Stop: 03/05/25 01:45 Home Medications ?Medication ?Instructions ?Recorded ?Confirmed ?Last Taken ?Type bupropion HCl 300 mg 24 hr tablet, 300 mg PO DAILY 03/05/25 03/05/25 03/05/25 History extended release dextroamphetamine-amphetamine 30 1 tab PO BID 0603/05/25 03/05/25 History mg tablet quetiapine 200 mg tablet 200 mg PO BEDTIME 03/05/25 03/05/25 03/04/25 History sertraline 100 mg tablet 200 mg PO DAILY 03/05/25 03/05/25 03/04/25 History Physical Exam 2 Vital Signs and Narrative: Vital Signs: Last Vital Signs Temp 97.6 F 03/04/25 22:15 Pulse 85 03/05/25 00:34 Resp 16 03/05/25 00:34 BP 104/80 03/05/25 00:34 Pulse Ox 100 03/05/25 00:34 O2 Del Method Room Air 03/05/25 00:34 BMI result Body Mass Index 30.5 Middle-aged male lying in bed in no distress Neck supple, no JVD Regular rate and rhythm, S1-S2 heard Regular breath sounds bilaterally, no wheezing or crackles appreciated Abdomen soft nontender, no guarding, no rigidity Patient is awake, alert and oriented to self, place, time and person ; no focal motor deficit Psych: Normal mood Left index finger wrapped in bandage ; scratch yashira seen on bilateral upper extremity Results Labs 03/04/25 20:21 03/04/25 20:21 Labs: Laboratory Results - last 24 hr 03/04/25 20:21 MCV 88.2 MCH 30.7 MCHC 34.8 RDW 14.2 Plt Count 147 L D MPV 12.1 Immature Gran % (Auto) 0.2 Neut % (Auto) 44.1 L Lymph % (Auto) 39.1 [place] % (Auto) 10.6 Eos % (Auto) 5.5 H Baso % (Auto) 0.5 Lymph # (Auto) 2.6 [place] # (Auto) 0.7 Eos # (Auto) 0.4 Baso # (Auto) 0.0 Abs Immat Gran (auto) 0.01 Absolute Neuts (auto) 2.9 Absolute Nucleated RBC 0.000 Nucleated RBC % (auto) 0.0 ESR 3 Anion Gap 12 Estim Creat Clear Calc 141.0 Estimated GFR > 60 Random Glucose 105 Calcium 8.7 D Total Bilirubin 0.1 AST 23 ALT 33 Alkaline Phosphatase 57 C-Reactive Protein 0.80 H Total Protein 7.1 Albumin 4.3 Assessment and Plan (1) Cat bite: Status: Acute Plan This has a 44-year-old male with pertinent history of mood disorder who presents to the emergency department for evaluation of cat bite. #. Left finger with cat bite associated cellulitis and abscess: I and D done by ER physician. Will admit patient with IV Unasyn. CT pending to delineate underlying anatomy. Consulting orthopedic surgery, appreciate assistance #. Mood disorder: Continue home mood stabilizers DVT prophylaxis: None. Low risk. Patient is ambulatory Full code Admit as inpatient and will require two night minimum hospital stay for IV antibiotics (as above), which is not possible in a lesser acute setting. Quality Stroke Does the patient have a stroke diagnosis?: No VTE Prior VTE?: No VTE Risk Level:: Medical - low VTE Device Contraindication: Treatment Not Indicated VTE Drug Contraindication: Treatment Not Indicated
[2025-03-05] MEDS: Lactated Ringers 1,000 ML 999 ML IV (00:38)
[2025-03-05] MEDS: Ampicillin Sodium/Sulbactam Na 3 GM in 0.9 % Sodium Chloride 100 ML IV ×4 (00:42→18:13)
[2025-03-05] MEDS: QUEtiapine Fumarate 200 MG TABLET PO ×2 (01:00→21:15)
--- NOTE | 2025-03-05 01:02 | PC.NURSE ---
pt medicated per NOV- report given to Tarsha Alexandra RN call martinez within reach
[2025-03-05 02:44] LABS: MANUAL DIFF FLAG NO
[2025-03-05 02:50] LABS: Basophils Percent Auto 0.5 % (0-2); Eosinophils Absolute Auto 0.4 X10*3/uL (0.0-0.4); Eosinophils Percent Auto 5.9 % (0-4); Hematocrit 39.4 % (42.0-52.0); Hemoglobin 13.5 g/dl (14.0-18.0); Imm Gran Abs Auto 0.01 X10*3/uL (0.00-0.03); Imm Gran Pct Auto 0.2 % (0.0-0.4); Lymphocytes Absolute Auto 2.7 X10*3/uL (1.2-4.9); Lymphocytes Percent Auto 44.7 % (20-40); Mean Corpuscular HGB Conc 34.3 g/dl (31.0-36.0); Mean Corpuscular Hemoglobin 29.9 pg (27.0-33.0); Mean Corpuscular Volume 87.4 fL (80.0-98.0); Mean Platelet Volume 12.4 fL (9.4-12.4); Monocytes Absolute Auto 0.6 X10*3/uL (0.1-1.2); Monocytes Percent Auto 9.4 % (2-11); Neutrophils Absolute Auto 2.4 x10*3/uL (2.0-8.3); Neutrophils Percent Auto 39.3 % (45-73); Platelet Count 132 X10*3/uL (160-400); Red Blood Count 4.51 X10*6/uL (4.60-5.80); White Blood Count 6.1 X10*3/uL (4.8-10.8)
[2025-03-05 03:02] LABS: Anion Gap 11 (12-20); Blood Urea Nitrogen 10 mg/dL (9-16); Carbon Dioxide 22 mmol/L (22-29); Chloride 110 mmol/L (96-108); Estimated Glomerular Filt Rate > 60; Glucose Random 104 mg/dL (60-115); Potassium 3.8 mmol/L (3.3-5.1); Sodium 139 mmol/L (135-145)
[2025-03-05] MEDS: traMADoL HCL 50 MG TABLET PO (04:03)
[2025-03-05 04:05] VITALS: BP 119/64; PULSE 93; RESP 20; TEMP 36.9; O2SAT 96
[2025-03-05] MEDS: Clindamycin Phosphate/D5W 900 MG/50 ML PIGGYBACK 50 MG IV ×3 (04:41→21:10)
--- NOTE | 2025-03-05 07:35 | PHA.MEDREC ---
Addendum entered by Blair Ward RPh 03/05/25 09:05: MED REC REVIEWED BY [facility] Original Note: Pharmacy Consult ? Medication Reconciliation Reviewed med rec done by nursing.
[2025-03-05] MEDS: Amphetamine Mixed Salts 10 MG TABLET 30 MG PO (07:53)
[2025-03-05] MEDS: Sertraline HCL 100 MG TABLET 200 MG PO (07:53)
[2025-03-05] MEDS: 0.9 % Sodium Chloride Flush 3 ML SYRINGE IVFLUSH (07:53)
--- NOTE | 2025-03-05 08:13 | PC.NURSE ---
patient a&ox3, vitals previously stable, rr equal/non labored-lungs clear, pt medicated per order, call martinez within reach, plan of care ongoing
--- NOTE | 2025-03-05 10:37 | PM.EVENT ---
Event Note Date of Service: 03/05/25 Event Note: Consult for Cat bite left index finger swollen with puncture wounds on dorsal aspect Patient has not tried any oral abx Presented to the ED yesterday: -No signs of tenosynovitis per ED note -Admitted to medicine for IV abx Recommend continuation of IV abx at this time to see if this resolves before surgical intervention is needed Will place NPO after midnight in the event surgical intervention is needed Discussed the case with Medicine - Julianne Olvera PA-C Time Spent With Patient Time: Total time managing care of this patient today ____ minutes.
[2025-03-05 10:45] VITALS: BP 114/70; PULSE 78; RESP 18; TEMP 36.9; O2SAT 98
--- NOTE | 2025-03-05 10:49 | PC.NURSE ---
patient a&ox3, vss, pt c/o 04/30 hand pain, pt only has tylenol ordered, messaged provider for stronger medication, call martinez within reach, plan of care ongoing
[2025-03-05] MEDS: Morphine Sulfate 2 MG/ML CARTRIDGE IVPUSH (10:59)
--- NOTE | 2025-03-05 11:00 | PC.NURSE ---
pt medicated for 04/30 pain
[2025-03-05] MEDS: oxyCODONE HCl Immed Release 5 MG TABLET PO ×2 (11:42→21:18)
--- NOTE | 2025-03-05 11:43 | PC.NURSE ---
patient medicated for 6/10 hand pain with po med
[2025-03-05 12:24] VITALS: BP 137/73; PULSE 76; RESP 16; TEMP 36.4; O2SAT 100
--- NOTE | 2025-03-05 14:05 | HO.PM.IMPN ---
Subjective Subjective Date of Service: 03/05/25 Interval History: seen and examined this morning follow up for cat bite still with pain and swelling of left index finger; unable to bend finger much no fever Review of Systems Review of Systems: Yes all other systems are reviewed and are negative Constitutional Constitutional: Denies chills and Denies fever(s) Cardiovascular Cardiovascular: Denies chest pain, Denies palpitations and Denies dyspnea Respiratory Respiratory: Denies cough and Denies dyspnea Endocrine Endocrine: Denies palpitations Physical Exam Vital Signs: Vital Signs: Last Vital Signs Temp 97.6 F 03/05/25 12:24 Pulse 76 03/05/25 12:24 Resp 16 03/05/25 12:24 BP 137/73 03/05/25 12:24 Pulse Ox 100 03/05/25 12:24 O2 Del Method Room Air 03/05/25 12:24 BMI result Body Mass Index 30.5 Const: General: cooperative, comfortable, alert and awake Nutritional Appearance: overweight Orientation/consciousness: patient oriented x3 Resp: Effort & Inspection: normal respiratory effort and able to speak in complete sentences Cardio: Rate: regular rate Skin: Other: left index finger with swelling distally, minimal erythema. no subq emphysema. no fluctuance; able to flex finger about 50%; open wound dorsal surface with no purulent drainage Neuro: General: patient oriented x3 and CN's II-XI intact bilaterally Objective Data Active Medications Acetaminophen (Acetaminophen 325 Mg Tablet) 650 mg PO Q6H PRN PRN Reason: Pain, Mild 1-3,fever,headache Amphetamine/Dextroamphetamine (Amphetamine Mixed Salts 10 Mg Tablet) 30 mg PO BID@0800,1400 [facility] Last Admin: 03/05/25 13:10 Dose: Not Given Documented By: SHERIDAN Non-Admin Reason: Patient Refused Calcium Carbonate (Calcium Carbonate 750 Mg Tab.Chew) 750 mg PO Q4H PRN PRN Reason: Heartburn Ampicillin Sodium/Sulbactam (Sodium 3 gm/ Sodium Chloride) 100 mls @ 200 mls/hr IV Q6H [facility] Last Admin: 03/05/25 13:06 Dose: 200 mls/hr Documented By: SHERIDAN Clindamycin Phosphate (Cleocin) 900 mg in 50 mls @ 50 mls/hr IV Q8H [facility] Last Infusion: 03/05/25 12:33 Dose: Infused Documented By: SHERIDAN Magnesium Hydroxide (Milk Of Magnesia 30 Ml Oral.Susp) 30 ml PO DAILY PRN PRN Reason: Constipation Melatonin (Melatonin 3 Mg Tablet) 6 mg PO BEDTIME PRN PRN Reason: Insomnia Morphine Sulfate (Morphine Sulfate 2 Mg/Ml Cartridge) 2 mg IVPUSH Q4H PRN; Protocol PRN Reason: Pain, Severe (Pain Scale 7-10) Last Admin: 03/05/25 10:59 Dose: 2 mg Documented By: MARIEL Ondansetron HCl (Ondansetron Hcl 4 Mg/2 Ml Vial) 4 mg IVPUSH Q8H PRN PRN Reason: Nausea and Vomiting Oxycodone HCl (Oxycodone Hcl Immed Release 5 Mg Tablet) 5 mg PO Q6H PRN PRN Reason: Pain, Moderate(Pain Scale 4-6) Last Admin: 03/05/25 11:42 Dose: 5 mg Documented By: MARIEL Quetiapine Fumarate (Quetiapine Fumarate 200 Mg Tablet) 200 mg PO BEDTIME [facility] Last Admin: 03/05/25 01:00 Dose: 200 mg Documented By: MAXWELL Sertraline HCl (Sertraline Hcl 100 Mg Tablet) 200 mg PO DAILY [facility] Last Admin: 03/05/25 07:53 Dose: 200 mg Documented By: MARIEL Sodium Chloride (0.9 % Sodium Chloride Flush 3 Ml Syringe) [facility] Last Admin: 03/05/25 07:53 Dose: 3 ml Documented By: MARIEL Labs 03/05/25 02:30 03/05/25 02:30 Labs: Laboratory Results - last 24 hr 03/04/25 03/05/25 20:21 02:30 MCV 88.2 87.4 MCH 30.7 29.9 MCHC 34.8 34.3 RDW 14.2 14.0 Plt Count 147 L D 132 L MPV 12.1 12.4 Immature Gran % (Auto) 0.2 0.2 Neut % (Auto) 44.1 L 39.3 L Lymph % (Auto) 39.1 44.7 H Glasscock % (Auto) 10.6 9.4 Eos % (Auto) 5.5 H 5.9 H Baso % (Auto) 0.5 0.5 Lymph # (Auto) 2.6 2.7 Glasscock # (Auto) 0.7 0.6 Eos # (Auto) 0.4 0.4 Baso # (Auto) 0.0 0.0 Abs Immat Gran (auto) 0.01 0.01 Absolute Neuts (auto) 2.9 2.4 Absolute Nucleated RBC 0.000 0.000 Nucleated RBC % (auto) 0.0 0.0 ESR 3 Anion Gap 12 11 L Estim Creat Clear Calc 141.0 162.0 Estimated GFR > 60 > 60 Random Glucose 105 104 Calcium 8.7 D 9.0 Total Bilirubin 0.1 AST 23 ALT 33 Alkaline Phosphatase 57 C-Reactive Protein 0.80 H Total Protein 7.1 Albumin 4.3 Assessment and Plan (1) Cat bite: Status: Acute Plan This is a 44-year-old male with pertinent history of mood disorder who presents to the emergency department for evaluation of cat bite. cellulitis with abscess of feft index finger due to cat bite s/p I&D in ER, with minimal fluid expressed, no wound culture sent continue IV Unasyn, clindamycin CT with cellulitis and soft tissue emphysema due to penetrating trauma or gas forming infection/necrotizing fasciitis - Gas most likely due to I&D as CT was obtained after procedure, no subcutaneous emphysema on exam, overall appears to be improving when compared to pictures from emergency room. Clindamycin has been added. Check lactic acid. No white count or fever. s/p rabies immunoglobumin, rabies vaccine, tdap orthopedic surgery consult, NPO at midnight in case of need for surgical intervention in am Blood cultures pending Mood disorder: Continue home mood stabilizers Thrombocytopenia Appears chronic DVT prophylaxis: None. Low risk. Patient is ambulatory Full code Admit as inpatient and will require two night minimum hospital stay for IV antibiotics (as above), which is not possible in a lesser acute setting. Quality Stroke Does the patient have a stroke diagnosis?: No VTE Prior VTE?: No VTE Risk Level:: Medical - low VTE Device Contraindication: Treatment Not Indicated VTE Drug Contraindication: Treatment Not Indicated
--- NOTE | 2025-03-05 14:19 | PC.NURSE ---
dressing changed, clean non-adherent applied with gauze wrap. wound clean and dry. swelling in hand reduced (as compred with pictures in chart)
[2025-03-05 15:04] LABS: Lactic Acid 1.3 mmol/L (0.5-2.0)
--- NOTE | 2025-03-05 19:24 | PC.NURSE ---
This RN assumed pt care @ 1900. Pt a&ox4, no signs of distress. Plan of care ongoing.
[2025-03-05 19:33] VITALS: BP 124/66; PULSE 83; RESP 18; TEMP 36.6; O2SAT 99
--- NOTE | 2025-03-05 19:34 | PC.NURSE ---
Pts family at bedside Plan of care ongoing.
--- NOTE | 2025-03-05 19:48 | PC.NURSE ---
Pts family requesting and given ice water. Plan of care ongoing.
--- NOTE | 2025-03-05 20:40 | PC.NURSE ---
Meds not in Pyxis, meds requested from pharmacy Plan of care ongoing.
--- NOTE | 2025-03-05 21:06 | PC.NURSE ---
Med just received from pharmacy
--- NOTE | 2025-03-05 21:21 | PC.NURSE ---
Pt reporting 6/10 pain in finger Pt medicated per mar with prn Pt reporting would like to get some sleep, has not slept at all while being here. Pt requested and lights dimmed and door closed Plan of care ongoing.
[2025-03-06] MEDS: 0.9 % Sodium Chloride Flush 3 ML SYRINGE IVFLUSH (01:12)
[2025-03-06] MEDS: Ampicillin Sodium/Sulbactam Na 3 GM in 0.9 % Sodium Chloride 100 ML IV ×2 (01:12→06:10)
--- NOTE | 2025-03-06 01:28 | PC.NURSE ---
Pt pulled out previously placed IV This RN placed new IV Pt medicated per [facility] Plan of care ongoing.
--- NOTE | 2025-03-06 03:57 | PC.NURSE ---
Assumed care of pt at 0320. Pt resting in bed, breathing even and unlabored. Call martinez at bedside, plan of care on going.
[2025-03-06] MEDS: Clindamycin Phosphate/D5W 900 MG/50 ML PIGGYBACK 50 MG IV (04:58)
--- NOTE | 2025-03-06 05:38 | PC.NURSE ---
pt IV to R-upper arm not flushing and tagaderm removed, catheter bent and kinked. IV removed and new #20 IV placed in L-Forearm.Pt tolerated well. IV abx running.
[2025-03-06 06:26] VITALS: BP 123/61; PULSE 69; RESP 16; TEMP 36.4; O2SAT 98
--- NOTE | 2025-03-06 07:27 | PM.CNOR ---
History of Present Illness HPI Consult date: 03/06/25 Chief complaint: cat bite Narrative: Mr. Gerardo is a healthy 44 year old right hand dominant male who reports that while he was bringing his trash out on 03/03/25 he found a stray cat in the bin. He tried to remove the cat resulting in the cat bitting his left hand index finger and sustaining multiple scratches to bilateral hands and forearms. The patient reports that he developed an increase is swelling and difficulty bending the left index finger. He presented to the ED where IV abx were started and the patient was admitted to the medicine service with orthopedic consult. The patient reports that while in the ED they opened the puncture site on the dorsal aspect of the left index finger for drainage. Review of Systems Review of Systems: Yes all other systems are reviewed and are negative [facility] Past Medical History Medical History Schizophrenia Depression Anxiety Social History Social History Alcohol intake: current Alcohol intake frequency: a few times a week Patient Tobacco Use Status: Former Tobacco user Smoked in Last 30 Days: No Substance Use Type: Marijuana Advance Directives: No Advance Directives Information Provided: No Nutrition Risks: No Nutritional Risk Current occupational status: unemployed Meds Allergies Allergy/AdvReac Type Severity Reaction Status Date / Time No Known Allergies Allergy Verified 03/04/25 20:06 [No Known Allergies*] Active Medications: Current Medications Acetaminophen (Acetaminophen 325 Mg Tablet) 650 mg PO Q6H PRN PRN Reason: Pain, Mild 1-3,fever,headache Amphetamine/Dextroamphetamine (Amphetamine Mixed Salts 10 Mg Tablet) 30 mg PO BID@0800,1400 [facility] Last Admin: 03/05/25 13:10 Dose: Not Given Bupropion HCl (Bupropion Hcl Xl 300 Mg Tab.Er.24h) 300 mg PO DAILY JACY Calcium Carbonate (Calcium Carbonate 750 Mg Tab.Chew) 750 mg PO Q4H PRN PRN Reason: Heartburn Ampicillin Sodium/Sulbactam (Sodium 3 gm/ Sodium Chloride) 100 mls @ 200 mls/hr IV Q6H [facility] Last Infusion: 03/06/25 06:42 Dose: Infused Clindamycin Phosphate (Cleocin) 900 mg in 50 mls @ 50 mls/hr IV Q8H [facility] Last Infusion: 03/06/25 06:38 Dose: Infused Magnesium Hydroxide (Milk Of Magnesia 30 Ml Oral.Susp) 30 ml PO DAILY PRN PRN Reason: Constipation Melatonin (Melatonin 3 Mg Tablet) 6 mg PO BEDTIME PRN PRN Reason: Insomnia Morphine Sulfate (Morphine Sulfate 2 Mg/Ml Cartridge) 2 mg IVPUSH Q4H PRN; Protocol PRN Reason: Pain, Severe (Pain Scale 7-10) Last Admin: 03/05/25 10:59 Dose: 2 mg Ondansetron HCl (Ondansetron Hcl 4 Mg/2 Ml Vial) 4 mg IVPUSH Q8H PRN PRN Reason: Nausea and Vomiting Oxycodone HCl (Oxycodone Hcl Immed Release 5 Mg Tablet) 5 mg PO Q6H PRN PRN Reason: Pain, Moderate(Pain Scale 4-6) Last Admin: 03/05/25 21:18 Dose: 5 mg Quetiapine Fumarate (Quetiapine Fumarate 200 Mg Tablet) 200 mg PO BEDTIME [facility] Last Admin: 03/05/25 21:15 Dose: 200 mg Sertraline HCl (Sertraline Hcl 100 Mg Tablet) 200 mg PO DAILY [facility] Last Admin: 03/05/25 07:53 Dose: 200 mg Sodium Chloride (0.9 % Sodium Chloride Flush 3 Ml Syringe) 3 ml IVFLUSH [facility] Last Admin: 03/06/25 01:12 Dose: 3 ml Home Medications ?Medication ?Instructions ?Recorded ?Confirmed ?Last Taken ?Type bupropion HCl 300 mg 24 hr tablet, 300 mg PO DAILY 03/05/25 03/05/25 03/05/25 History extended release dextroamphetamine-amphetamine 30 1 tab PO BID 03/05/25 03/05/25 03/05/25 History mg tablet quetiapine 200 mg tablet 200 mg PO BEDTIME 03/05/25 03/05/25 03/04/25 History sertraline 100 mg tablet 200 mg PO DAILY 03/05/25 03/05/25 03/04/25 History Physical Exam Vital Signs: Vital Signs: Last Vital Signs Temp 97.6 F 03/06/25 06:26 Pulse 69 03/06/25 06:26 Resp 16 03/06/25 06:26 BP 123/61 03/06/25 06:26 Pulse Ox 98 03/06/25 06:26 O2 Del Method Room Air 03/06/25 06:26 BMI result Body Mass Index 30.5 Const: General: cooperative, healthy appearing and no acute distress Resp: Effort & Inspection: normal respiratory effort and able to speak in complete sentences Extrem: Other: Left hand index finger: Puncture wound that was opened on the dorsal aspect of the hand is not draining. Edema is improving. No tenderness to palpation of the flexor tendons. Able to flex and extend all digits. Lacking about 3cm from making a closed fist. Denies numbness and tingling. Capillary refill is brisk. Results Labs 03/05/25 02:30 03/05/25 02:30 Labs: H & H 03/04/25 03/05/25 Range/Units 20:21 02:30 Hgb 13.8 L 13.5 L (14.0-18.0) g/dl Hct 39.7 L 39.4 L (42.0-52.0) % All other labs normal. Assessment and Plan (1) Cat bite: Status: Acute Plan Continue IV Abx Continue to monitor for signs of improvement Instructed patient to work on gentle ROM with instruction/demonstration provided at bed side No Surgical intervention needed at this time If worsening symptoms of abscess development occurs may consider OR Procedures Date of Service Date of Service: 03/06/25
--- NOTE | 2025-03-06 09:09 | PM.DS ---
DS: Providers Provider Date of Service: 03/06/25 Date of admission: 03/04/25 23:32 Date of discharge: 03/06/25 Primary care physician: Hunter Angela MD Consults: 03/05/25 00:33 Consult to Orthopedics Routine Consulting Provider: [facility] Orthopedic Surgeons Reason for consultation: finger infection DS: Diagnosis Discharge Diagnosis (1) Cat bite: Status: Acute DS: Summary Hospital Course Hospital Course: History and physical as per admitting provider This has a 44-year-old male with pertinent history of mood disorder who presents to the emergency department for evaluation of cat bite. Patient states this happened 2 days prior to presentation when he was trying to take a stray cat out of a trash can who bit the patient on his left hand. He has scratch hilliard on left and right upper extremity. Patient has multiple bite hilliard in his left index finger. He did not take any oral antibiotics for the last 2 days. He noticed that has left index finger was with progressive swelling, erythema and pain. Patient with difficulty with flexing the index finger due to pain. No fever, chills, chest pain, palpitations, shortness of breath, abdominal pain, changes in urinary or bowel habits. In the emergency department, I and D done by ER physician. 44-year-old man treated for cellulitis with abscess to left index finger secondary to a cat bite status post I&D in the ER, treated with IV Unasyn and clindamycin. Status post rabies vaccine, Tdap. Blood cultures negative. Seen evaluated by Orthopedic surgery, instructed patient on gentle range of motion, no surgical intervention required at this time. Plan will be to send home with Augmentin for 10 days. Patient is to keep wound clean and dry. Return to the ER if symptoms worsened. Mental health. Continue home medications Thrombocytopenia. Chronic Time Attestation Discharge Coordination Time (in mins): 40 Quality: Safe Use of Opioids Does Pt have an Active Cancer Diagnosis on the Problem List?: No Quality: Stroke Does the patient have a stroke diagnosis?: No Physical Exam Vital Signs: Vital Signs: Last Vital Signs Temp 97.6 F 03/06/25 06:26 Pulse 69 03/06/25 06:26 Resp 16 03/06/25 06:26 BP 123/61 03/06/25 06:26 Pulse Ox 98 03/06/25 06:26 O2 Del Method Room Air 03/06/25 06:26 BMI result Body Mass Index 30.5 Appearing in no acute distress head is normocephalic atraumatic eyes pupils are PERRLA sclera is anicteric mouth throat mucous membranes are intact and moist neck is supple no lymphadenopathy, no JVD noted lung sounds are clear to auscultation heart regular rate rhythm, clear S1, S2 positive bowel sounds, abdomen is soft, nontender neuro patient is alert x3, no focal deficits DS: Data Data Completed and Pending Labs on day of discharge: Laboratory Results - last 24 hr 03/05/25 14:42 Lactic Acid 1.3 Preliminary micro results at discharge 03/04/25 20:21 Blood Culture - Preliminary Blood - Venous No growth after 24 hours. 03/04/25 20:21 Blood Culture - Preliminary Blood - Venous No growth after 24 hours. Discharge Plan Discharge Anticipated Discharge Date/Time: 03/06/25 09:07 Patient Disposition: Home, Self-Care Discharge Diagnosis: Cat bite Referrals: Hunter Angela MD [Primary Care Provider] - 1 Week Discharge Medications: New ibuprofen 600 mg tablet 600 mg PO Q6H PRN (Reason: fever or pain) Qty: 30 0RF amoxicillin-pot clavulanate 875-125 mg tablet 1 tab PO BID Qty: 20 0RF Continued sertraline 100 mg tablet 200 mg PO DAILY quetiapine 200 mg tablet 200 mg PO BEDTIME dextroamphetamine-amphetamine 30 mg tablet 1 tab PO BID bupropion HCl 300 mg tablet extended release 24 hr 300 mg PO DAILY Discharge Orders: Discharge Order (Routine); Ordered 03/06/25 Ordered By: Mirella Jeffries Diet: Advance to usual diet Activity on Discharge: As tolerated Stand Alone Forms: Patient Portal Discharge page Print Language: German Care Plan Goals: Complete course of antibiotics Keep wound clean and dry, may cover with gauze Do not allow animals to lick the area If you notice increased swelling, pain, discharge or decreased mobility/movement return to the emergency department for further evaluation Health Concerns: Cat bite Plan of Treatment: Follow-up with primary care provider as needed Take all medications as prescribed Assessment: See discharge summary
--- NOTE | 2025-03-06 09:46 | MHC.CM.PN ---
PT REPORTS HE LIVES ALONE AND IS FULLY INDEPENDENT HE HAS NO SERVICES AND NO DME HE DECLINES A HCP PCP: BEN ADAMS PT WILL DC HOME TODAY WITH NO SERVICES VIA PRIVATE TRANSPORT
[2025-03-06] MEDS: buPROPion HCl XL 300 MG TAB.ER.24H PO (09:48)
== END 2025-03-06 09:58 | disposition home or self-care (01) | DRG 383 ==
LOC: HO.ED 22:54 → HO.EDOVER 03-05 00:24 → HO.S3 03-06 07:55
PROVIDERS: Physician Assistant Medical; Registered Nurse Emergency; Admitting Provider Student in an Organized Health Care Education/Training Program; Emergency Provider Internal Medicine; PCP Internal Medicine; Visit Provider Nurse Practitioner Acute Care
DX: L02.512 Cutaneous abscess of left hand (principal); L03.114 Cellulitis of left upper limb; S61.251A Open bite of left index finger without damage to nail, initial encounter; Z23 Encounter for immunization; W55.01XA Bitten by cat, initial encounter; Z20.3 Contact with and (suspected) exposure to rabies; Z79.899 Other long term (current) drug therapy
CPT/HCPCS: 36415; 73201; 80048; 80053; 83605; 85025; 85652; 86140; 87040; 90375; 90675; 90715; 99221; 99285; J0295; J0736; J2003; J2270; J2543; J7120

== ENCOUNTER 2025-03-04 23:32 | Outpatient (BNV) | payer OTHER, SELFPAY | END 2025-03-05 00:33 | PROVIDERS: Admitting Provider Student in an Organized Health Care Education/Training Program; Emergency Provider Internal Medicine; PCP Internal Medicine; Visit Provider Radiology Diagnostic Radiology | DX: T81.82XA Emphysema (subcutaneous) resulting from a procedure, initial encounter (principal) | CPT/HCPCS: 73201 ==

== ENCOUNTER → 2025-03-04 23:32 | Outpatient (BNV) | payer OTHER, SELFPAY | PROVIDERS: Admitting Provider Student in an Organized Health Care Education/Training Program; Emergency Provider Internal Medicine; PCP Internal Medicine; Visit Provider Physician Assistant | DX: R22.32 Localized swelling, mass and lump, left upper limb (principal); W55.01XA Bitten by cat, initial encounter | CPT/HCPCS: 99221 ==

== ENCOUNTER → 2025-03-04 23:32 | Outpatient (BNV) | payer OTHER, SELFPAY | PROVIDERS: Admitting Provider Student in an Organized Health Care Education/Training Program; Emergency Provider Internal Medicine; PCP Internal Medicine; Visit Provider Student in an Organized Health Care Education/Training Program | DX: M79.645 Pain in left finger(s) (principal); W55.01XA Bitten by cat, initial encounter | CPT/HCPCS: 99222; 99499 ==

== ENCOUNTER 2025-03-16 10:05 | Emergency (ER) | payer OTHER, SELFPAY ==
[2025-03-16 10:17] VITALS: BP 116/71; PULSE 78; RESP 16; TEMP 36.2; O2SAT 98; BMI 28.8
--- NOTE | 2025-03-16 10:50 | ED.ANIMALBIT ---
HPI - Animal Bite General Chief Complaint: Animal Bite Stated Complaint: rabies shot Time Seen by Provider: 03/16/25 10:45 Source: patient, RN notes reviewed and old records reviewed Mode of arrival: ambulatory Limitations: no limitations History of Present Illness ED Provider: Jessica Montilla PA-C HPI narrative: 44-year-old male with recent admission to [facility] 03/04-03/06 for cat bite requiring I&D in the ER, discharged on Augmentin who presents to the ER for rabies shot. He states he never got day 3 vaccine on his day of discharge. He never took his Augmentin. The wound healed well. He has no concerns for infection. He has not received the other 3 doses of the rabies shot series. complaint: animal bite Onset (ago): day(s) Animal: cat Description of animal: wild animal Mechanism: bite Associated symptoms: none Related Data Patient tetanus UTD: Yes Home Medications ?Medication ?Instructions ?Recorded ?Confirmed bupropion HCl 300 mg 24 hr tablet, 300 mg PO DAILY 03/05/25 03/05/25 extended release dextroamphetamine-amphetamine 30 1 tab PO BID 03/05/25 03/05/25 mg tablet quetiapine 200 mg tablet 200 mg PO BEDTIME 03/05/25 03/05/25 sertraline 100 mg tablet 200 mg PO DAILY 03/05/25 03/05/25 Previous Rx's ?Medication ?Instructions ?Recorded amoxicillin 875 mg-potassium 1 tab PO BID #20 tabs 03/04/25 clavulanate 125 mg tablet ibuprofen 600 mg tablet 600 mg PO Q6H PRN fever or pain 03/04/25 #30 tabs Allergies Allergy/AdvReac Type Severity Reaction Status Date / Time No Known Allergies (No Known Allergy Verified 03/16/25 10:20 Allergies*) Review of Systems Review of Systems: Yes all other systems are reviewed and are negative PMFSH Past Medical History Medical History Schizophrenia Depression Anxiety Social History Social History Alcohol intake: current Alcohol intake frequency: a few times a week Patient Tobacco Use Status: Former Tobacco user Substance Use Type: Marijuana Advance Directives: No Advance Directives Information Provided: No Do you have a plan to hurt others: No Plan service: No Current occupational status: unemployed Physical Exam ED Vital Signs: Vital Signs - 24 hr 03/16/25 10:17 Temperature 97.1 F Pulse Rate 78 Respiratory Rate 16 Blood Pressure 116/71 Pulse Oximetry 98 Oxygen Delivery Method Room Air BMI result Body Mass Index 28.8 Appearance: Alert. Oriented X3. No acute distress. HEENT: normal inspection CVS: Normal heart rate and rhythm. Pulses normal. Respiratory: No respiratory distress. Skin: Skin warm and dry. Normal skin color. Normal skin turgor. No rashes. Extremities: left index finger with dry pealing skin, no signs of infection, no erythema, FROM. NV intact distally. Neuro: Oriented X 3. No motor deficit. No sensory deficit. Medications Administered Discontinued Medications Generic Name Dose Route Start Last Admin Trade Name Freq PRN Reason Stop Dose Admin Rabies Vaccine 1 ml 03/16/25 10:55 03/16/25 11:14 Rabies Vaccine (Pcec)/Pf 1 Ml Vial IM 03/16/25 10:56 1 ml .ONCE ONE Administration Medical Decision Making Medical Decision Making MDM Narrative: 44 yo male recently admitted for a cat bite w/ cellulitis presenting for rabies shot. he states he never got referral to infusion Center for completion of his rabies series. He is needing day 3, 7 and 14. Case discussed with Sariah Suárez from Infectious Disease who is recommending continuing the current course from here on out. He is next due for his day 7 shot in 4 days. Order sent to the infusion center. There is no sign for infection. stable for discharge home with outpatient follow-up with the infusion center Differential Diagnosis Differential Diagnoses: The differential diagnosis associated with the presentation includes ongoing infection/cellulitis, rabies, routine healing Consult Healthcare Provider Management of the patient was discussed with: [employer] Operator Dr. Suárez External Record Review External record reviewed: Inpatient record Prescription Management I considered prescription management with: Antibiotic Discharge Plan Discharge Clinical Impression: Cat bite Qualifiers: Encounter type: initial encounter Qualified Code(s): W55.01XA - Bitten by cat, initial encounter Patient Disposition: Home, Self-Care Instructions: Rabies (ED) Additional Instructions: you were given 2nd dose of Rabies vaccine today you have 2 more shots left - next is due on Thursday. The infusion center will contact you If you develop new or worsening symptoms call 911 or come back to the ER for further evaluation. Prescriptions: No Action ibuprofen 600 mg tablet 600 mg PO Q6H PRN (Reason: fever or pain) Qty: 30 0RF amoxicillin-pot clavulanate 875-125 mg tablet 1 tab PO BID Qty: 20 0RF sertraline 100 mg tablet 200 mg PO DAILY quetiapine 200 mg tablet 200 mg PO BEDTIME dextroamphetamine-amphetamine 30 mg tablet 1 tab PO BID bupropion HCl 300 mg tablet extended release 24 hr 300 mg PO DAILY Print Language: Swedish
[2025-03-16] MEDS: Rabies Vaccine (PCEC)/PF 1 ML VIAL IM (11:14)
--- NOTE | 2025-03-16 11:36 | PC.NURSE ---
pt medicated per NOV, rabies vaccine given in left deltoid- PA Renschler to bedside awaiting consult from ID re: future rabies vaccines. pt offers no questions/complaints at thsi time
[2025-03-16 11:57] VITALS: BP 116/71; PULSE 78; RESP 16; TEMP 36.2; O2SAT 98
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
== END 2025-03-16 11:58 | disposition home or self-care (01) ==
PROVIDERS: Emergency Provider Emergency Medicine; PCP Internal Medicine
DX: S61.251A Open bite of left index finger without damage to nail, initial encounter (principal); X58.XXXA Exposure to other specified factors, initial encounter; W55.01XA Bitten by cat, initial encounter; Y93.9 Activity, unspecified; Y92.9 Unspecified place or not applicable; Y99.8 Other external cause status; Z23 Encounter for immunization
CPT/HCPCS: 90471; 90675; 99282; 99284

== ENCOUNTER 2025-05-04 20:55 | Emergency (ER) | payer OTHER, SELFPAY ==
--- NOTE | ~2025-05-04 | CT_ITS ---
CLINICAL HISTORY: RLQ pain CT abdomen and pelvis with contrast Comparison: CT - CT HAND LT W IV CON - 03/05/25 00:43 EDT Findings: The lung bases are clear. The liver, gallbladder, pancreas, spleen, adrenal glands, and kidneys are unremarkable. The appendix is normal. The remainder of the gastrointestinal tract is unremarkable. There is trace free fluid Hanks's pouch and in the pelvis. There is bladder wall thickening and mild perivesical fat stranding. The bladder is not distended. The prostate is mildly enlarged. There are no enlarged lymph nodes. The aorta and IVC are normal. There is no fracture or suspicious lytic or sclerotic lesion. IMPRESSION: Bladder wall thickening and mild perivesical fat stranding consistent with cystitis. This document has been electronically signed by: Melchor Koroma MD on 05/05/2025 05:08:48
[2025-05-04 21:42] VITALS: BP 160/75; PULSE 82; RESP 18; TEMP 36.7; O2SAT 98; BMI 29.6
[2025-05-04 22:20] LABS: Hemoglobin 13.4 g/dl (14.0-18.0); Imm Gran Abs Auto 0.03 X10*3/uL (0.00-0.03); Imm Gran Pct Auto 0.3 % (0.0-0.4); NRBC Abs Auto 0.000 X10*3/uL (0.0-0.012); NRBC Pct Auto 0.0 /100WBC (0.0-0.2); PLT CLUMP 1; SCAN SMEAR FLAG 1
[2025-05-04 22:22] LABS: Hematocrit 38.7 % (42.0-52.0); Lymphocytes Absolute Auto 2.2 X10*3/uL (1.2-4.9); Mean Corpuscular HGB Conc 34.6 g/dl (31.0-36.0); Mean Corpuscular Hemoglobin 30.3 pg (27.0-33.0); Mean Corpuscular Volume 87.6 fL (80.0-98.0); Red Blood Count 4.42 X10*6/uL (4.60-5.80)
[2025-05-04 22:28] LABS: Anion Gap 13 (12-20); Blood Urea Nitrogen 9 mg/dL (9-16); Calcium 9.1 mg/dL (8.4-10.2); Carbon Dioxide 21 mmol/L (22-29); Chloride 109 mmol/L (96-108); Creatinine Clr Calc Pharmacy 146.0; Estimated Glomerular Filt Rate > 60; Potassium 3.9 mmol/L (3.3-5.1); Sodium 139 mmol/L (135-145)
[2025-05-04 22:30] LABS: MANUAL DIFF FLAG NO; Platelet Count 116 X10*3/uL (160-400); White Blood Count 9.8 X10*3/uL (4.8-10.8)
[2025-05-04 23:02] LABS: Cannabinoid Screen Urine POSITIVE (Not Detect)
[2025-05-04 23:24] LABS: Appearance Urine Cloudy; Glucose Urine UA Negative (Negative); PH 6.5 (5.0-9.0); Specific Gravity - Urine 1.015 (1.005-1.025); UMIC TRIGGER UACC YES
[2025-05-04 23:30] LABS: UACC Culture Trigger YES
[2025-05-05 01:10] VITALS: BP 154/70; PULSE 86; RESP 16; TEMP 36.9; O2SAT 98
--- NOTE | 2025-05-05 02:41 | ED.MALEGU ---
HPI - Male Genitourinary General Chief complaint: Urogenital-Male Stated complaint: bld in stool and urine Time Seen by Provider: 05/05/25 02:19 Source: patient Mode of arrival: ambulatory Limitations: no limitations History of Present Illness ED Provider: Dr. Yanely Slade HPI Narrative: Patient comes to the emergency room with multiple complaints. Patient is complaining of dysuria for several days, complaining of hematuria, complaining of blood in the stool, no rectal pain, complaining of right lower quadrant pain. Patient denies fever, complaining of chills couple of days ago. Patient states that since he was diagnosed with a gastritis several months ago, is significantly decreased his alcohol intake. Patient now only drinks on weekends occasionally. Patient states that now he only drinks occasionally beer, no longer hard liquor. Patient states that he had an endoscopy done, diagnosed with gastritis, no colonoscopy. Related Data Home Medications ?Medication ?Instructions ?Recorded ?Confirmed bupropion HCl 300 mg 24 hr tablet, 300 mg PO DAILY 03/05/25 03/05/25 extended release dextroamphetamine-amphetamine 30 1 tab PO BID 03/05/25 03/05/25 mg tablet quetiapine 200 mg tablet 200 mg PO BEDTIME 03/05/25 03/05/25 sertraline 100 mg tablet 200 mg PO DAILY 03/05/25 03/05/25 Previous Rx's ?Medication ?Instructions ?Recorded amoxicillin 875 mg-potassium 1 tab PO BID #20 tabs 03/04/25 clavulanate 125 mg tablet ibuprofen 600 mg tablet 600 mg PO Q6H PRN fever or pain 03/04/25 #30 tabs levofloxacin 500 mg tablet 500 mg PO DAILY #7 tabs 05/05/25 Allergies Allergy/AdvReac Type Severity Reaction Status Date / Time No Known Allergies (No Known Allergy Verified 05/04/25 21:46 Allergies*) Review of Systems Review of Systems: Constitutional : No Weight loss, No Fever, No Chills, No Night Sweats, No Fatigue, No Malaise ENT/Mouth : No Hearing loss, No Ear Pain, No Nasal Congestion, No Sinus Pain, No Hoarseness, No sore throat, No Rhinorrhea, No Swallowing Difficulty Eyes: No Eye Pain, No Swelling, No Redness, No Foreign Body, No Discharge, No Vision Changes Cardiovascular : No Chest Pain, No SOB, No Dyspnea on Exertion, No Orthopnea, No Edema, No Palpitations Respiratory : No Cough, No Sputum, No Wheezing, No Smoke Exposure, No Dyspnea Gastrointestinal : No Nausea, No Vomiting, No Diarrhea, complaining of Constipation, complaining of blood in the stool, no diarrhea, complaining of right lower quadrant pain Genitourinary : complaining of hematuria and dysuria, denies penile discharge No Urinary Incontinence, No Urgency, No Flank Pain, No Urinary Flow Changes, No Hesitancy Musculoskeletal : No joint pain, No Myalgias, No Joint Swelling Skin : No Skin Lesions, No rash Neuro : No Weakness, No Numbness, No Paresthesias, No Loss of Consciousness, No Dizziness, No Headache Psych : No Anxiety/Panic, No Depression, No SI/HI/AH/VH, No Social Issues, Heme/Lymph: No Bruising, No Bleeding,No Lymphadenopathy Endocrine : No Polyuria, No Polydipsia, No Temperature Intolerance PMFSH Past Medical History Medical History Schizophrenia Depression Anxiety Social History Social History Alcohol intake: current Alcohol intake frequency: holidays/special occasions only Patient Tobacco Use Status: Former Tobacco user Smoked in Last 30 Days: Yes Use of substances other than those prescribed or required for medical reasons: No Substance Use Type: Marijuana Advance Directives: No Advance Directives Information Provided: Yes Do you have a plan to hurt others: No Plan service: No Current occupational status: unemployed Physical Exam Exam: Exam: Appearance: Alert. Oriented X3. No acute distress. Eyes: Pupils equal, round and reactive to light. ENT: Pharynx normal. Neck: Normal inspection. Neck supple. No lymph nodes noted. No crepitus CVS: Normal heart rate and rhythm. Pulses normal. Normal S1 and S2 Respiratory: No respiratory distress. Breath sounds normal. No Wheezing. No rales Abdomen: Soft , reported a bit of tenderness in the right lower quadrant, no rebound or guarding, No rigidity. No distention. On digital rectal exam, no blood present Skin: Skin warm and dry. Normal skin color. Normal skin turgor. Extremities: No lower extremity edema. No Lacerations. No Rash Neuro: Oriented X 3. No motor deficit. No sensory deficit. Moving all extremities. No slurred speech. CN 2 through 12 grossly intact Psych: calm, cooperative, normal affect Vital Signs: Vital Signs: Last Vital Signs Temp 98.3 F 05/05/25 02:43 Pulse 80 05/05/25 02:43 Resp 16 05/05/25 02:43 BP 145/90 H 05/05/25 02:43 Pulse Ox 99 05/05/25 02:43 O2 Del Method Room Air 05/05/25 02:43 BMI result Body Mass Index 29.6 Course Course Course Narrative: patient's labs pending Imaging pending Medications Administered Discontinued Medications Generic Name Dose Route Start Last Admin Trade Name Freq PRN Reason Stop Dose Admin Iohexol 85 ml 05/05/25 03:05 05/05/25 03:05 Iohexol 350 Mg/Ml 100 Ml Infus..Btl IV 05/05/25 03:06 85 ml ONCE ONE Administration Medical Decision Making Medical Decision Making [facility] Narrative: My interpretation of labs: Normal white blood cell count, patient's hemoglobin 13.4, at baseline, chemistry within normal limits, urinalysis positive for UTI, normal LFTs, normal lipase, normal magnesium, ETOH negative Patient declined concern for STDs, did not give urine for STDs check CT scan consistent with cystitis/UTI Patient was given the 1st dose of p.o. antibiotics in the emergency room. Also, phenazopyridine for symptomatic relief Patient does not have any flank pain, no fever chills, no hypotension, sepsis not suspected pyelonephritis not suspected Differential Diagnosis Differential Diagnoses: The differential diagnosis associated with the presentation includes (UTI, STDs, Ureterolithiasis, appendicitis, pyelonephritis) Admission/Observation Consideration of admission/observation: Escalation of care including admission/observation considered (Given patient's presentation, symptoms, observation was considered) Lab Data [facility] Lab Attestation statement: I reviewed the patient's lab results. 05/04/25 22:11 05/04/25 22:11 Labs: Lab Results 05/04/25 05/04/25 05/05/25 Range/Units 22:11 22:28 02:41 WBC 9.8 (4.8-10.8) X10*3/uL RBC 4.42 L (4.60-5.80) X10*6/uL Hgb 13.4 L (14.0-18.0) g/dl Hct 38.7 L (42.0-52.0) % MCV 87.6 (80.0-98.0) fL MCH 30.3 (27.0-33.0) pg MCHC 34.6 (31.0-36.0) g/dl RDW 15.4 (11.0-16.0) % Plt Count 116 L (160-400) X10*3/uL MPV 12.3 (9.4-12.4) fL Immature Gran % (Auto) 0.3 (0.0-0.4) % Neut % (Auto) 68.6 (45-73) % Lymph % (Auto) 22.5 (20-40) % [place] % (Auto) 5.2 (2-11) % Eos % (Auto) 3.2 (0-4) % Baso % (Auto) 0.2 (0-2) % Lymph # (Auto) 2.2 (1.2-4.9) X10*3/uL [place] # (Auto) 0.5 (0.1-1.2) X10*3/uL Eos # (Auto) 0.3 (0.0-0.4) X10*3/uL Baso # (Auto) 0.0 (0.0-0.2) X10*3/uL Abs Immat Gran (auto) 0.03 (0.00-0.03) X10*3/uL Absolute Neuts (auto) 6.7 (2.0-8.3) x10*3/uL Absolute Nucleated RBC 0.000 (0.0-0.012) X10*3/uL Nucleated RBC % (auto) 0.0 (0.0-0.2) /100WBC Sodium 139 (135-145) mmol/L Potassium 3.9 (3.3-5.1) mmol/L Chloride 109 H (96-108) mmol/L Carbon Dioxide 21 L (22-29) mmol/L Anion Gap 13 (12-20) BUN 9 (9-16) mg/dL Creatinine 0.81 (0.5-1.4) mg/dL Estim Creat Clear Calc 146.0 Estimated GFR > 60 Random Glucose 107 (60-115) mg/dL Calcium 9.1 (8.4-10.2) mg/dL Magnesium 1.9 (1.6-2.6) mg/dL Total Bilirubin 0.3 (0.0-1.0) mg/dL Direct Bilirubin 0.2 (0.0-0.5) mg/dL AST 29 (5-37) U/L ALT 32 (0-40) U/L Alkaline Phosphatase 58 (39-117) U/L Total Protein 7.1 (6.5-8.0) g/dL Albumin 4.2 (3.5-5.0) g/dL Lipase 41 (8-78) U/L Urine Color Yellow Urine Appearance Cloudy Urine pH 6.5 (5.0-9.0) Ur Specific [place] 1.015 (1.005-1.025) Urine Protein 100 (2+) H (Neg-Trace) mg/dL Urine Glucose (UA) Negative (Negative) mg/dL Urine Ketones Negative (Negative) mg/dL Urine Blood Moderate (2+) H (Negative) Urine Nitrite Positive H (Negative) Ur Leukocyte Esterase Moderate (2+) H (Negative) Urine RBC >20 H (0-2) /HPF Urine WBC >50 H (0-5) /HPF Ur Squamous Epith Cells 0-2 (0-2) /HPF Urine Bacteria 4+ (None Seen) Hyaline Casts 0-2 (0-2) /LPF Stool Occult Blood POSITIVE (NEGATIVE) Urine Opiates Screen Not Detected (Not Detect) Ur Buprenorphine Scrn Not Detected (Not Detect) ng/mL Ur Oxycodone Screen Positive H (Not Detect) ng/mL Urine Methadone Screen Not Detected (Not Detect) ng/mL Urine Fentanyl Screen Not Detected (Not Detect) Ur Barbiturates Screen Not Detected (Not Detect) Ur Phencyclidine Scrn Not Detected (Not Detect) Ur Amphetamines Screen Not Detected (Not Detect) U Benzodiazepines Scrn Not Detected (Not Detect) Urine Cocaine Screen POSITIVE H (Not Detect) U Marijuana (THC) Screen POSITIVE H (Not Detect) Ethyl Alcohol < 10 mg/dL Independent Interpretation I performed an independent interpretation of an: CT Scan Radiology Impression Discussion of test interpretation with radiology: I have reviewed the radiologist's reading. Radiologist Impression: The lung bases are clear. The liver, gallbladder, pancreas, spleen, adrenal glands, and kidneys are unremarkable. The appendix is normal. The remainder of the gastrointestinal tract is unremarkable. There is trace free fluid Hanks's pouch and in the pelvis. There is bladder wall thickening and mild perivesical fat stranding. The bladder is not distended. The prostate is mildly enlarged. There are no enlarged lymph nodes. The aorta and IVC are normal. There is no fracture or suspicious lytic or sclerotic lesion. IMPRESSION: Bladder wall thickening and mild perivesical fat stranding consistent with cystitis. Critical Care Time Critical Care Time Critical Care Time: Yes Total Critical Care Time: 35 Attestation: I have personally provided critical care time. Time includes review of lab data, radiology results, discussion with consultants, and monitoring for potential decompensation. Intervention performed as documented. Discharge Plan Discharge Clinical Impression: Acute UTI Patient Disposition: Home, Self-Care Instructions: Urinary Tract Infection in Men (ED) Additional Instructions: Please follow-up with your primary care physician tomorrow. If you have any worsening or new symptoms, please return to the emergency room or call 911 Prescriptions: New levofloxacin 500 mg tablet 500 mg PO DAILY Qty: 7 0RF No Action ibuprofen 600 mg tablet 600 mg PO Q6H PRN (Reason: fever or pain) Qty: 30 0RF amoxicillin-pot clavulanate 875-125 mg tablet 1 tab PO BID Qty: 20 0RF sertraline 100 mg tablet 200 mg PO DAILY quetiapine 200 mg tablet 200 mg PO BEDTIME dextroamphetamine-amphetamine 30 mg tablet 1 tab PO BID bupropion HCl 300 mg tablet extended release 24 hr 300 mg PO DAILY Print Language: Uzbek
[2025-05-05 02:43] VITALS: BP 145/90; PULSE 80; RESP 16; TEMP 36.8; O2SAT 99
[2025-05-05 02:48] LABS: OBS Int Ctl Valid YES; OBS1 POSITIVE (NEGATIVE)
[2025-05-05 03:01] LABS: Alanine Aminotransferase 32 U/L (0-40); Albumin Level 4.2 g/dL (3.5-5.0); Alkaline Phosphatase 58 U/L (39-117); Aspartate Amino Transferase 29 U/L (5-37); Lipase 41 U/L (8-78); Magnesium 1.9 mg/dL (1.6-2.6); Total Protein 7.1 g/dL (6.5-8.0)
[2025-05-05] MEDS: iohexoL 350 MG/ML 100 ML INFUS..BTL 85 ML IV (03:05)
[2025-05-05 05:36] VITALS: BP 132/95; PULSE 90; RESP 16; TEMP 36.9; O2SAT 98
[2025-05-05 05:39] VITALS: BP 132/95; PULSE 90; RESP 16; TEMP 36.9; O2SAT 98
== END 2025-05-05 05:39 | disposition home or self-care (01) ==
PROVIDERS: Emergency Provider Emergency Medicine; PCP Internal Medicine
DX: N39.0 Urinary tract infection, site not specified (principal); K92.1 Melena; R31.9 Hematuria, unspecified; R10.31 Right lower quadrant pain; Z51.81 Encounter for therapeutic drug level monitoring; Z79.899 Other long term (current) drug therapy
CPT/HCPCS: 36415; 74177; 80048; 80076; 80307; 81001; 81003; 82272; 83690; 83735; 85025; 87086; 87088; 87186; 99284; Q9967

== ENCOUNTER → 2025-05-05 02:40 | Outpatient (BNV) | payer OTHER, SELFPAY | PROVIDERS: Emergency Provider Emergency Medicine; PCP Internal Medicine; Visit Provider Radiology Diagnostic Radiology | DX: N32.89 Other specified disorders of bladder (principal) | CPT/HCPCS: 74177 ==

== ENCOUNTER 2025-05-21 20:28 | Emergency (ER) | payer OTHER, SELFPAY ==
[2025-05-21 20:32] VITALS: BP 164/101; PULSE 108; O2SAT 99
[2025-05-21 20:43] VITALS: BP 131/92; PULSE 101; RESP 11; TEMP 36.9; O2SAT 97
[2025-05-21 21:08] VITALS: BP 131/92; PULSE 96; RESP 14; TEMP 36.9; O2SAT 99; BMI 29.0
--- NOTE | 2025-05-21 21:25 | ED.GENADULT ---
HPI - General Adult General Chief complaint: General Medical Stated complaint: unresponsive Time Seen by Provider: 05/21/25 21:16 Source: patient Mode of arrival: ambulatory Limitations: no limitations History of Present Illness ED Provider: Dr. Evans HPI narrative: 44-year-old male presented hospital today for an episode of unresponsive. Patient was found by girlfriend to be unresponsive. Patient states he has history of narcolepsy, he did take his Seroquel earlier today. Denies any chest pain or shortness of breath. Patient does have history of sleep apnea as well. Girlfriend stated that she called 911 because she was unsure what to do. She did try to perform see. Was unsure if whether she did appropriately. Patient then came back around. He states he was able to see EMS. Girlfriend denies any seizure-like activity. Related Data Home Medications ?Medication ?Instructions ?Recorded ?Confirmed bupropion HCl 300 mg 24 hr tablet, 300 mg PO DAILY 03/05/25 03/05/25 extended release dextroamphetamine-amphetamine 30 1 tab PO BID 03/05/25 03/05/25 mg tablet quetiapine 200 mg tablet 200 mg PO BEDTIME 03/05/25 03/05/25 sertraline 100 mg tablet 200 mg PO DAILY 03/05/25 03/05/25 Previous Rx's ?Medication ?Instructions ?Recorded amoxicillin 875 mg-potassium 1 tab PO BID #20 tabs 03/04/25 clavulanate 125 mg tablet ibuprofen 600 mg tablet 600 mg PO Q6H PRN fever or pain 03/04/25 #30 tabs levofloxacin 500 mg tablet 500 mg PO DAILY #7 tabs 05/05/25 Allergies Allergy/AdvReac Type Severity Reaction Status Date / Time No Known Allergies (No Known Allergy Verified 05/21/25 21:10 Allergies*) Review of Systems Review of Systems: Pertinent review of systems as mentioned in HPI. All other system otherwise negative. [facility] Past Medical History [facility] Narrative: Medical history as mentioned in HPI Medical History Schizophrenia Depression Anxiety Social History Social History Alcohol intake: former Patient Tobacco Use Status: Former Tobacco user Smoked in Last 30 Days: Yes Use of substances other than those prescribed or required for medical reasons: Yes Substance Use Type: Marijuana Advance Directives: No Advance Directives Information Provided: Yes service: No Current occupational status: unemployed Physical Exam ED Exam Exam: General: Pleasant, no distress, interacting appropriately Head: Normacephalic, atraumatic ENT: oral mucosa moist, neck supple, no tracheal deviation Cardiovascular: regular rate, regular rhythm, no murmurs, rubbing, gallops Respiratory: CTAB, no wheeze, rales, rhonchi Extremities: No limb pain or swelling, no calf tenderness Neurological: Awake and alert, no facial droop noted, no focal neurological deficit Skin: Warm and dry Psychiatric: Appropriate mood and thoughts Vital Signs: Vital Signs - 24 hr 05/21/25 20:43 05/21/25 21:08 Temperature 98.4 F 98.4 F Pulse Rate 101 H 96 Respiratory Rate 11 L 14 Blood Pressure 131/92 H 131/92 H Pulse Oximetry 97 99 Oxygen Delivery Method Room Air Room Air BMI result Body Mass Index 29.0 Medical Decision Making Medical Decision Making MDM Narrative: 44-year-old male presented hospital today for evaluation of an episode of unresponsiveness today EKG did not show any signs of cardiac arrhythmia he does have signs of LVH. The patient is refusing any lab work at this time. He does not want any workup done. He states he recently had lab work performed. He would like to be discharged home. We will plan to discharge patient at this time. Differential Diagnosis Differential Diagnoses: The differential diagnosis associated with the presentation includes Cardiac arrhythmia, seizure, syncope, sleep apnea, narcolepsy Independent Interpretation I performed an independent interpretation of an: EKG Discharge Plan Discharge Clinical Impression: Syncope Qualifiers: Syncope type: unspecified Qualified Code(s): R55 - Syncope and collapse Patient Disposition: Home, Self-Care Additional Instructions: EKG shows left ventricular hypertrophy. Discuss with your doctor whether blood pressure medicine is appropriate. Prescriptions: No Action ibuprofen 600 mg tablet 600 mg PO Q6H PRN (Reason: fever or pain) Qty: 30 0RF amoxicillin-pot clavulanate 875-125 mg tablet 1 tab PO BID Qty: 20 0RF sertraline 100 mg tablet 200 mg PO DAILY quetiapine 200 mg tablet 200 mg PO BEDTIME dextroamphetamine-amphetamine 30 mg tablet 1 tab PO BID bupropion HCl 300 mg tablet extended release 24 hr 300 mg PO DAILY levofloxacin 500 mg tablet 500 mg PO DAILY Qty: 7 0RF Print Language: Guamanian
--- NOTE | 2025-05-21 21:40 | ECG_ITS ---
Test Reason : CARDIAC ARRYTHMIA Blood Pressure : */* mmHG Vent. Rate : 93 BPM Atrial Rate : 93 BPM P-R Int : 154 ms QRS Dur : 82 ms QT Int : 352 ms P-R-T Axes : 51 59 19 degrees QTcB Int : 437 ms Normal sinus rhythm Minimal voltage criteria for LVH, may be normal variant ( Sokolow-Vega ) Borderline ECG No previous ECGs available Referred By: Tana Evans Electronically Signed By: JUANPABLO VARGAS MD
--- OUTSIDE RECORDS SUMMARY | 2025-05-21 21:42 | XMS_ITS | Clinical Summary ---
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 Referred to orthopedics Surgical History Surgery Date Site/Laterality Comments HERNIA REPAIR PROCEDURE: REPAIR INGUINAL HERNIA OTHER SURGICAL HISTORY PROCEDURE: ---- OTHER ----; COMMENT: s/p ORIF OTHER SURGICAL HISTORY 2002 Right PROCEDURE: [place] OSTEOTOMY TIBIA & FIBULA Medical History Medical [...] x4 healthy brothers Coronary artery disease Father OR a ge 52 No Known Problems Maternal [...] of 3 - 19+ 3-dose series) 1999 Social Influencers of Health Screening 06/26/2022 COVID-19 Vaccine (2023-2 5 season) 2024 Depression Screening 09/21/2024 Influenza Vaccine (#1) 2025 Cholesterol Screening (Lipid Panel) 02/28/2029 02/29/2024, [...] 5 Years) and At-Risk Patients (6 to 49 Years) Aged Out No longer eligible b ased on patient's age to complete this topic RSV Immunization Patients Under 20 months Aged Out No longer eligible b ased on patient's age to complete this topic Varicella Vaccines Aged Out No longer eligible based on patient's age to complete this topic Procedures Procedure Name Priority Date/Time Associated Diagnosis Comments EXTERNAL CT REPORT 05/05/[address] REPORT 05/05/2025 HEPATITIS C SCREENING Routine 02/29/2024 HIV SCREENING Routine 02/29/2024 LIPID PANEL Routine 02/29/2024 from Last 3 Months or Most Recently Relevant to Health Maintenance Results * External CT Report (05/05/2025) Only the most recent of2 resultswithin the time period is included. Anatomical Region Laterality Modality Computed Tomogra phy Provider [place] [facility] PROCEDURES Final Result * HIV Screening (02/29/2024) HIV Screening Abstracted [facility] Provider HEALTH MAINTENANCE Final Result * Hepatitis C Screening (02/29/2024) Pathologist [facility] Hepatitis C Screening Abstracted [facility] Provider HEALTH MAINTENANCE Final Result * (ABNORMAL) Lipid panel (02/29/2024) LDL/HDL Ratio 4 0 - 4 Triglycerides 89 0 - 150 mg/dL Cholesterol 234(A) 0 - 200 mg/dL HDL 62 >=40 mg/dL LDL Cholesterol 155(A) 0 - 100 mg/dL Blood Venous blood specimen / Unknown [facility] Provider LAB BLOOD ORDERABLES Tamara l Result from Last 3 Months or Most Recently Relevant to Health Maintenance Insurance [facility] [address] [employer] Care 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
[2025-05-21 22:32] VITALS: BP 125/80; PULSE 88; RESP 15; TEMP 36.6; O2SAT 97
[2025-05-21 22:33] VITALS: BP 125/80; PULSE 88; RESP 15; TEMP 36.6; O2SAT 97
== END 2025-05-21 22:33 | disposition home or self-care (01) ==
PROVIDERS: Emergency Provider Student in an Organized Health Care Education/Training Program; PCP Internal Medicine
DX: R55 Syncope and collapse (principal); I49.8 Other specified cardiac arrhythmias; R40.4 Transient alteration of awareness; Z79.899 Other long term (current) drug therapy; Z87.891 Personal history of nicotine dependence
CPT/HCPCS: 93005; 99283; 99284

== ENCOUNTER → 2025-05-21 21:40 | Outpatient (BNV) | payer OTHER, SELFPAY | PROVIDERS: Emergency Provider Student in an Organized Health Care Education/Training Program; PCP Internal Medicine; Visit Provider Internal Medicine Cardiovascular Disease | DX: I49.9 Cardiac arrhythmia, unspecified (principal) | CPT/HCPCS: 93010 ==